=== PATIENT | male | born 1980 | race African-American/Black ===

== ENCOUNTER 2017-05-28 12:01 | Inpatient (IN) | payer BC ==
[~2017-05-28] VITALS: Ht 172.7 cm; Wt 79.9 kg
[~2017-05-28 12:01] MED LIST: IBUP-1542 PO; LEVE500T8 PO; PHEN100C PO
[2017-05-28] MEDS ORDERED: ONDANSETRON INJ 8 MG in DEXTROSE 5% 50 ML IV STA (12:30)
[2017-05-28] MEDS ORDERED: HYDROmorphONE 1 MG/ML SYG IV STA ×2 (12:30→13:38)
[2017-05-28] MEDS ORDERED: KETOROLAC 30 MG INJ IV STA (12:30)
[2017-05-28] MEDS ORDERED: SOD CHLORIDE 0.9% 1,000 ML IV STA (12:30)
[2017-05-28 12:51] LABS: ADD SCAN DIFF NO
[2017-05-28 12:52] LABS: BASOPHILS % 0.3 % (0.0-2.0); EOSINOPHILS # 0.3 10^3/ul (0.0-0.5); EOSINOPHILS % 4.4 % (0.0-7.0); HEMATOCRIT 33.3 % (42.0-52.0); HEMOGLOBIN 10.2 g/dl (14.0-18.0); LYMPHOCYTES # 1.3 10^3/ul (0.8-2.9); LYMPHOCYTES % 21.2 % (15.0-51.0); MEAN CORPUSCULAR HEMOGLOBIN 28.6 pg (29.0-33.0); MEAN CORPUSCULAR HGB CONC 30.6 g/dl (32.0-37.0); MEAN CORPUSCULAR VOLUME 93.3 fl (82.0-101.0); MEAN PLATELET VOLUME 9.6 fl (7.4-10.4); MONOCYTE # 1.1 10^3/ul (0.3-0.9); MONOCYTES % 17.9 % (0.0-11.0); NEUTROPHIL # 3.4 10^3/ul (1.6-7.5); PLATELET COUNT 421 10^3/UL (140-415); RED BLOOD COUNT 3.57 10^6/ul (4.70-6.10); RED CELL DISTRIBUTION WIDTH 15.1 % (11.5-14.5); WHITE BLOOD COUNT 6.1 10^3/ul (4.8-10.8)
[2017-05-28] MEDS ORDERED: ONDANSETRON 4 MG INJ IV STA (13:04)
[2017-05-28 13:17] LABS: ALBUMIN 3.4 g/dl (3.3-4.9); ALBUMIN/GLOBULIN RATIO 0.94; CALCIUM 8.6 mg/dl (8.4-10.2); CREATININE 6.98 mg/dl (0.61-1.24); POTASSIUM 4.7 mmol/L (3.5-5.1)
[2017-05-28 14:03] LABS: ADD UMIC NO; UR ASCORBIC ACID 20 mg/dL (NEGATIVE); UR BILIRUBIN (Dip) NEGATIVE (NEGATIVE); UR BLOOD (Dip) NEGATIVE (NEGATIVE); UR CLARITY CLEAR (CLEAR); UR COLOR STRAW (YELLOW); UR GLUCOSE (Dip) NEGATIVE (NEGATIVE); UR KETONES (Dip) NEGATIVE (NEGATIVE); UR LEUKOCYTE ESTERASE (Dip) NEGATIVE Leu/ul (NEGATIVE); UR NITRITE (Dip) NEGATIVE (NEGATIVE); UR SPECIFIC GRAVITY (Dip) 1.011 (1.003-1.030); UR TOTAL PROTEIN (Dip) NEGATIVE (NEGATIVE); UR UROBILINOGEN (Dip) NEGATIVE (NEGATIVE)
--- NOTE | 2017-05-28 16:14 | ERA ---
ER Documentation Chief Complaint Date/Time DATE: 05/28/17 TIME: 16:13 Chief Complaint LEFT FLANK AND ABD PAIN FOR THE PAST MONTH. PROGRESSIVE WORSENING HPI This is a 37-year-old male who presents to the emergency room for evaluation of left-sided flank pain. The patient states he has had pain for the past month and some progressively getting worse. He is also complaining of some pain in the right flank as well. He states that sometimes is difficult for him to urinate. He denies any medical problems. He denies any fevers or chills associated with this and came to the ER for evaluation ROS All systems reviewed and are negative except as per history of present illness. Medications Home Meds Active Scripts Phenytoin* Sodium Extended (Dilantin*) 100 Mg Capsule, 100 MG PO TID for 30 Days , CAP Prov:RENU LOPEZ MD 10/28/15 Reported Medications Ibuprofen* (Ibuprofen*) 600 Mg Tablet, 600 MG PO TID Y for PAIN 10/28/15 Levetiracetam* (Levetiracetam*) 500 Mg Tablet, 500 MG PO BID 10/28/15 Allergies Allergies: Coded Allergies: No Known Allergies (Verified Allergy, Mild, 07/27/10) PMhx/Soc History of Surgery: No Anesthesia Reaction: No Hx Neurological Disorder: No Hx Respiratory Disorders: No Hx Cardiac Disorders: No Hx Psychiatric Problems: No Hx Miscellaneous Medical Probl: No Hx Alcohol Use: No Hx Substance Use: No Hx Tobacco Use: No Smoking Status: Never smoker Physical Exam Vitals Vital Signs Date Time Temp Pulse Resp B/P Pulse Ox O2 Delivery O2 Flow Rate FiO2 05/28/17 12:04 98.6 82 16 165/90 98 Physical Exam INITIAL VITAL SIGNS: Reviewed by me GENERAL: The patient is well developed and appropriate for usual state of health in no apparent distress HEENT: Pupils equal, round, and reactive to light. EOMI. There is no scleral icterus. NECK: C-spine is soft and supple, there is no meningismus. There is no cervical lymphadenopathy. LUNGS: Clear to auscultation bilaterally. There are no rales, wheezes or rhonchi. HEART: Regular rate and rhythm, no murmurs, clicks, rubs or gallops. ABDOMEN: Bilateral CVAT, soft, non-tender, non-distended. There are bowel sounds in all four quadrants. No rebound or guarding. EXTREMITIES: There is no peripheral cyanosis or edema. No focal swelling or erythema. NEUROLOGICAL: The patient moves all four extremities with 5/5 strength. Cranial nerves II - XII are intact. Normal gait. Alert and oriented SKIN: There is no apparent rash or petechiae. HEME/LYMPHATIC: There is no evidence of excessive bruising or lymphedema. PSYCHIATRIC: The patient does not appear anxious or depressed. Result Diagram: 05/28/17 1248 05/28/17 1248 Results 24 hrs Laboratory Tests Test 05/28/17 12:48 05/28/17 13:44 White Blood Count 6.110^3/ul Red Blood Count 3.5710^6/ul Hemoglobin 10.2g/dl Hematocrit 33.3% Mean Corpuscular Volume 93.3fl Mean Corpuscular Hemoglobin 28.6pg Mean Corpuscular Hemoglobin Concent 30.6g/dl Red Cell Distribution Width 15.1% Platelet Count 71538^3/UL Mean Platelet Volume 9.6fl Neutrophils % 56.0% Lymphocytes % 21.2% Monocytes % 17.9% Eosinophils % 4.4% Basophils % 0.3% Nucleated Red Blood Cells % 0.0/100WBC Neutrophils # 3.410^3/ul Lymphocytes # 1.310^3/ul Monocytes # 1.110^3/ul Eosinophils # 0.310^3/ul Basophils # 0.010^3/ul Nucleated Red Blood Cells # 0.010^3/ul Sodium Level 141mmol/L Potassium Level 4.7mmol/L Chloride Level 108mmol/L Carbon Dioxide Level 18mmol/L Anion Gap 20 Blood Urea Nitrogen 41mg/dl Creatinine 6.98mg/dl Glucose Level 78mg/dl Calcium Level 8.6mg/dl Total Bilirubin 0.0mg/dl Direct Bilirubin 0.00mg/dl Indirect Bilirubin 0.0mg/dl Aspartate Amino Transf (AST/SGOT) 37IU/L Alanine Aminotransferase (ALT/SGPT) 50IU/L Alkaline Phosphatase 83IU/L Total Protein 7.0g/dl Albumin 3.4g/dl Globulin 3.60g/dl Albumin/Globulin Ratio 0.94 Lipase 81U/L Urine Color STRAW Urine Clarity CLEAR Urine pH 5.0 Urine Specific [place] 1.011 Urine Ketones NEGATIVEmg/dL Urine Nitrite NEGATIVEmg/dL Urine Bilirubin NEGATIVEmg/dL Urine Urobilinogen NEGATIVEmg/dL Urine Leukocyte Esterase NEGATIVELeu/ul Urine Hemoglobin NEGATIVEmg/dL Urine Glucose NEGATIVEmg/dL Urine Total Protein NEGATIVEmg/dl Current Medications Medications (Trade) Dose Ordered Sig/Suzanne Route PRN Reason Start Time Stop Time Status Last Admin Dose Admin Sodium Chloride (NS) 1,000 ml @ 1,000 mls/hr Q1H STAT IV 05/28/17 12:30 05/28/17 13:29 DC 05/28/17 12:47 Hydromorphone HCl 0.5 mg 0.5 mg ONCE STAT IV 05/28/17 12:30 05/28/17 12:32 DC 05/28/17 12:45 Ondansetron HCl/ Dextrose (Zofran Inj/D5W) 54 ml @ 200 mls/hr ONCE STAT IV 05/28/17 12:30 05/28/17 13:05 DC Ketorolac Tromethamine (Toradol) 30 mg ONCE STAT IV 05/28/17 12:30 05/28/17 12:33 DC 05/28/17 12:46 Ondansetron HCl (Zofran Inj) 8 mg ONCE STAT IV 05/28/17 13:04 05/28/17 13:06 DC 05/28/17 13:46 Hydromorphone HCl (Dilaudid) 0.5 mg ONCE STAT IV 05/28/17 13:38 05/28/17 13:40 DC 05/28/17 13:46 Procedures/MDM CT abdomen pelvis without: Gastric carcinoma and possible metastatic disease causing hydronephrosis CT report cannot be copy and pasted due to the fact that there is been room air in registering this patient since there has not been a crossover of information from PACS to our emergency room packs. I did review a copy of this patient's printed out CAT scan which does show hydronephrosis secondary to pelvic mass and possible gastric carcinoma. This patient will be placed in for admission at this time for new diagnosis of gastric carcinoma. Patient [facility] under the care of Dr. cosme Leon Diagnosis: Primary Impression: Acute renal failure Additional Impression: Gastric carcinoma Condition: NATALIE Heart DO May 28, 2017 16:14
[2017-05-28] MEDS ORDERED: ACETAMINOPHEN 325 MG TAB PO PRN ×2 (17:00→17:30)
[2017-05-28] MEDS ORDERED: SOD CHLORIDE 0.9% 1,000 ML IV SCH (17:00)
[2017-05-28] MEDS ORDERED: ONDANSETRON 4 MG INJ IV PRN ×2 (17:00→17:30)
--- NOTE | 2017-05-28 17:08 | HP ---
Date/Time of Note Date/Time of Note DATE: 05/28/17 TIME: 16:52 Assessment/Plan VTE Prophylaxis VTE Prophylaxis Intervention: SCD's Assessment/Plan Chief Complaint/Hosp Course 1. Abdominal pain secondary to likely metastatic gastric cancer with bilateral hydronephrosis and carcinomatosis GI and oncology consultation as well as urology consultation for bilateral hydronephrosis, patient will need a biopsy of the gastric mass CT brain and chest for staging Pain control 2. Acute kidney injury secondary to obstructive uropathy with bilateral hydronephrosis from retroperitoneal adenopathy and carcinomatosis Urology and nephrology consultations 3. History of seizures Patient was diagnosed with seizures 1-2 years ago, CT brain to rule out brain metastases Continue home Lamictal 4. Normocytic anemia likely secondary chronic disease Monitor Prophylaxis: SCDs Problems: HPI/ROS Admit Date/Time Admit Date/Time Hx of Present Illness Patient is a 37-year-old male with history of seizures diagnosed approximately 1 year ago presents with 1 month of worsening left flank pain and abdominal pain. Patient has been told recently at an urgent care that he has fluid in his belly and on his kidney and that he has acute renal failure, as he did have an ultrasound done at urgent care last week but had been unable to get a CT of his abdomen done secondary to insurance issues. Patient states that his pain today has been mostly on the right side, he denies any dysuria, urinary urgency or frequency. Patient does state that he recently had a fever but denies any nausea vomiting, new seizures or headaches. Patient denies any significant weight loss. In the ER CT abdomen showed a mass in the stomach suspicious for gastric cancer as well as moderate hydronephrosis of both kidneys as well as carcinomatosis and possible liver mass. ROS Gastrointestinal: pain PMH/Family/Social Past Medical History History of seizures diagnosed a year ago on Lamictal with no further seizures reported Past Surgical History Past Surgical Hx: no surgical history Family History Significant Family History: diabetes Social History Patient had been a daily drinker but stopped approximately a week ago Alcohol Use: other Smoking Status: Never smoker Drug Use: marijuana Exam/Review of Systems Vital Signs Vitals Vital Signs Date Time Temp Pulse Resp B/P Pulse Ox O2 Delivery O2 Flow Rate FiO2 05/28/17 12:04 98.6 82 16 165/90 98 Exam Constitutional: alert, oriented Head: normocephalic Respiratory: clear to auscultation Cardiovascular: regular rate and rhythm Gastrointestinal: firm, soft, tender, No distended Musculoskeletal: nl extremities to inspection Labs Result Diagram: 05/28/17 1248 05/28/17 1248 JESUS VALERIO May 28, 2017 17:06
[2017-05-28] MEDS ORDERED: DOCUSATE SODIUM 100 MG CAP PO PRN (17:30)
[2017-05-28] MEDS ORDERED: LORAZEPAM 2 MG INJ IV PRN (17:30)
[2017-05-28] MEDS ORDERED: HYDROCODONE/APAP (5/325) TAB PO PRN (17:30)
[2017-05-28] MEDS ORDERED: NACL 0.9% 3 ML SYG IV SCH (17:30)
[2017-05-28] MEDS ORDERED: ZOLPIDEM 5 MG TAB PO PRN (17:30)
[2017-05-28 17:57] VITALS: BP 178/108; RESP 18
[2017-05-28] MEDS ORDERED: hydrALAzine 20 MG INJ IV PRN (18:30)
--- NOTE | 2017-05-28 18:35 | RADRPT ---
PROCEDURE: CT scan of the abdomen and pelvis without IV contrast. CLINICAL INDICATION: 37-year-old male with abdominal pain and right lower pelvic pain. TECHNIQUE: Thin section axial, coronal and sagittal images were performed through the abdomen and pelvis without contrast. Radiation Dose: CTDI: 9.12 and DLP: 575 One or more of the following dose reduction techniques were used: - Automated exposure control. - Adjustment of the mA and/or kV according to patient size. Use of iterative reconstruction technique. COMPARISON: No. FINDINGS: Soft tissues: An umbilical hernia is identified. No inguinal hernia is identified. Lungs and pleural spaces: There is some pleural thickening and parenchymal scarring in the central d orsal aspect of the right lower lobe. There are peripheral ground-glass infiltrates and plate-like densities in the medial aspect of the right lower lobe consistent with atelectasis. Heart: Normal. A small pericardial effusion is noted. The liver, common bile duct and gallbladder: The liver is upper limits of normal for size measuring 15.46 cm AP. No intrahepatic biliary ductal dilatation is identified. A subcapsular hepatic mass is suspected near the ligament teres in the lateral segment of the left lobe of the liver. This shoul d be further evaluate with a ultrasound, triple phase CT scan with 15-minute delayed images through the bladder or MRI using a hemangioma protocol. There is a small amount of ascites noted adjacent t o the liver. The gallbladder and gallbladder wall are normal. A noncontrast CT is relatively insens itive in detecting solid hepatic nodules. Gastrointestinal: The stomach is distended with particulate matter fluid and air. There is a shelf- like area of gastric wall thickening in the antrum of the stomach which could be the result of a gas tric cancer. The periportal area is poorly defined making assessment for adenopathy in the area diff icult. Lack of oral contrast and IV contrast can to be used is. Fascial planes between the inferio r vena cava and abdominal aorta are poorly defined. There is stranding in the mesentery around the superior mesenteric vein and artery. Retroperitoneal and mesenteric spread of tumor is suspected. The small bowel loops have a normal caliber. There is fecal material in the ascending colon transve rse colon and splenic flexure.. There is fecal material in the transverse colon. There is a midlin e umbilical hernia measuring 1.9 cm transverse by 2.3 cm sagittal by 1.6 cm AP with a neck hernia me asuring 6 mm transverse. Pancreas: There is stranding adjacent to the body and tail as well as head of the pancreas. The ext rahepatic common bile duct is not well visualized. Kidneys, bladder and adrenal glands : There is moderate hydronephrosis of both kidneys. No obstruct ing ureterolith or nephrolith is identified. 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 The urinary bladder is incompletely distended without evidence of a bladder stone or bladd er wall thickening. Spleen: Normal. There is a small amount of ascitic fluid adjacent to the spleen. Lymph nodes: Enlarged mesenteric node measuring 2.3 cm sagittal x 1.5 x 0.9 cm in size is identifie d medial to the cecum. Enlarged retroperitoneal lymph nodes are suspected around the common iliac a rteries, mid and lower abdominal aorta. There are large lymph nodes suspected along the pelvic side sharma medial to the lower psoas and upper iliopsoas muscles. The fascial planes between the femoral vein and femoral artery is ill-defined on both sides. There is stranding of the mesentery. There a re small inguinal lymph nodes. Reproductive system and pelvis : The seminal vesicles and prostate gland are unremarkable. Bony elements: The innominate bone, femurs, SI joints and hip joints are normal. The lumbar vertebr a and visible thoracic vertebra are normal. No bone metastasis or acute bony fracture is identified . Vasculature: Normal. IMPRESSION: 1. There is a mass involving the fundus and antrum of the stomach suspicious for gastric cancer. 2. Moderate hydronephrosis of the right left kidneys with extensive retroperitoneal stranding and m esenteric stranding suspicious for retroperitoneal adenopathy and carcinomatosis with spread of tumo r. 3. A poorly visualized mass is identified in the subcapsular portion in the lateral segment of the left lobe of the liver near the ligamentum teres. Further imaging with a triple phase CT scan of th e abdomen pelvis with delayed images through the urinary bladder may be helpful in staging. A hepati c nodule from a metastasis, cirrhosis of the liver or hemangioma might present this fashion. A PET CT scan could be considered. 4. Some pleural and parenchymal scarring is suspected in the right lower lobe and lower right pleura l space. 5. Small pericardial effusion. 6. Constipation. 7. Midline umbilical hernia. 8. Ascites. RPTAT:AAJJ Arie Alan, Physician Date Time Electronically viewed and signed by Arie Alan Physician on 05/28/2017 14:13 DELMA/
--- NOTE | 2017-05-28 18:43 | QN ---
Documentation Comment Patient was briefly seen in the emergency room as he was being transferred, chart was reviewed Full consult to follow We will plan possible EGD tomorrow STACEY BARTH MD May 28, 2017 18:43
[2017-05-28] MEDS: DEXTROSE 5%-0.45% NACL 1,000 ML IV SCH (18:57)
--- NOTE | 2017-05-28 19:18 | CONS ---
Date/Time of Note Date/Time of Note DATE: 05/28/17 TIME: 18:59 Assessment/Plan Assessment/Plan Chief Complaint/Hosp Course Mass in the stomach and that is going to be worked up by the editor in chief Bilateral hydronephrosis most likely secondary to encasement of the ureters by a retroperitoneal adenopathy or fatty infiltration. Renal failure because of the hydronephrosis History of seizures Problems: Additional Assessment/Plan Patient will need to undergo a cystoscopy retrograde pyelograms and insertion of bilateral JJ stents. He is going to have upper endoscopy by the editor in chief most likely tomorrow therefore I would wait until that is done then I will schedule him for the cystoscopy. I spent over 45 minutes with the patient his explaining to them the findings and the hydronephrosis the causes for that the differential diagnosis and the treatment. I informed them that if we have to put the JJ stents these need to be changed every 3 months. He asked whether he will have them for how long I told him if he was to undergo chemotherapy for his cancer after that is being confirmed and the kidneys are no longer obstructed then we could take the stents out. I also discussed with them in case we cannot put the JJ stents doing bilateral nephrostomy tube insertion he understood that. For now I would wait for the GI procedures to be done first and also for the nephrology see if they need to do any dialysis on him first. Consultation Date/Type/Reason Admit Date/Time May 28, 2017 Date of Consultation: May 28, 2017 Type of Consultation: Urology Reason for Consultation Bilateral hydronephrosis Referring Provider: JESUS VALERIO of Present Illness 37-year-old -[place] male has been having low back pain for about a month. He went to an urgent care in April and had abdominal ultrasound. That showed ascites and hydronephrosis. He was recommended to have a CT scan and when he called to make the appointment for the CT scan he was told they do not have an opening until sometime in June. On May 12 his insurance changed from a PPO HM0. He continues to have back pain therefore he came into the emergency room at [facility]. He underwent a CT scan of the abdomen and pelvis and the impression was: 1. There is a mass involving the fundus and antrum of the stomach suspicious for gastric cancer. 2. Moderate hydronephrosis of the right left kidneys with extensive retroperitoneal stranding and mesenteric stranding suspicious for retroperitoneal adenopathy and carcinomatosis with spread of tumor. 3. A poorly visualized mass is identified in the subcapsular portion in the lateral segment of the left lobe of the liver near the ligamentum teres. Further imaging with a triple phase CT scan of the abdomen pelvis with delayed images through the urinary bladder may be helpful in staging. A hepatic nodule from a metastasis, cirrhosis of the liver or hemangioma might present this fashion. A PET CT scan could be considered. 4. Some pleural and parenchymal scarring is suspected in the right lower lobe and lower right pleural space. 5. Small pericardial effusion. 6. Constipation. 7. Midline umbilical hernia. 8. Ascites. RPTAT:AAJJ Physician Bill Date Time Electronically viewed and signed by Arie Alan Physician on 05/28/2017 14:13 JM/ Therefore the patient was admitted to the hospital GI consult was requested as well as nephrology consultation because of renal failure and a urological consult Constitutional: no complaints Eyes: no complaints ENT: no complaints Respiratory: no complaints Cardiovascular: no complaints Gastrointestinal: pain (Pain and abdominal distention in the epigastric area and mid abdomen) Genitourinary: other (Low back pain), No dysuria, No hematuria Musculoskeletal: no complaints Skin: no complaints Neurologic: other (He was diagnosed with seizures about an year and was worked up for that and put on medications there was no diagnosis of any brain tumor according to him and his ), seizure Endocrine: no complaints Lymphatic: no complaints Psychological: no complaints Immunologic: no complaints Past Medical History Medical History: other (History of seizure) Past Surgical History Past Surgical Hx: no surgical history Family History Significant Family History: no pertinent family hx Social History Alcohol Use: other Smoking Status: Never smoker Drug Use: marijuana Other Social History Has 2 children and his is now Exam/Review of Systems Vital Signs Vitals Vital Signs Date Time Temp Pulse Resp B/P Pulse Ox O2 Delivery O2 Flow Rate FiO2 05/28/17 17:57 98.4 85 18 178/108 97 7/17/17 16:58 Room Air Exam Constitutional: alert, oriented Psych: no complaints Head: normocephalic Eyes: nl conjunctiva ENMT: nl external ears & nose Neck: supple Respiratory: normal air movement Cardiovascular: nl pulses Gastrointestinal: other (The abdomen is a little distended and he feels fullness in the mid abdomen) Genitourinary - Male: other (His genitals have some edema and puffiness) Musculoskeletal: nl extremities to inspection Extremities: edema (Mild edema in both thighs) Skin: nl turgor Results Result Diagram: 05/28/17 1248 05/28/17 1248 Results 24 hrs Laboratory Tests Test 05/28/17 12:48 05/28/17 13:44 White Blood Count 6.1 Red Blood Count 3.57 L Hemoglobin 10.2 L Hematocrit 33.3 L Mean Corpuscular Volume 93.3 Mean Corpuscular Hemoglobin 28.6 L Mean Corpuscular Hemoglobin Concent 30.6 L Red Cell Distribution Width 15.1 H Platelet Count 421 H Mean Platelet Volume 9.6 Neutrophils % 56.0 Lymphocytes % 21.2 Monocytes % 17.9 H Eosinophils % 4.4 Basophils % 0.3 Nucleated Red Blood Cells % 0.0 Neutrophils # 3.4 Lymphocytes # 1.3 Monocytes # 1.1 H Eosinophils # 0.3 Basophils # 0.0 Nucleated Red Blood Cells # 0.0 Sodium Level 141 Potassium Level 4.7 Chloride Level 108 Carbon Dioxide Level 18 L Anion Gap 20 H Blood Urea Nitrogen 41 H Creatinine 6.98 H Glucose Level 78 Calcium Level 8.6 Total Bilirubin 0.0 L Direct Bilirubin 0.00 Indirect Bilirubin 0.0 Aspartate Amino Transf (AST/SGOT) 37 Alanine Aminotransferase (ALT/SGPT) 50 Alkaline Phosphatase 83 Total Protein 7.0 Albumin 3.4 Globulin 3.60 H Albumin/Globulin Ratio 0.94 Lipase 81 Urine Color STRAW Urine Clarity CLEAR Urine pH 5.0 Urine Specific [place] 1.011 Urine Ketones NEGATIVE Urine Nitrite NEGATIVE Urine Bilirubin NEGATIVE Urine Urobilinogen NEGATIVE Urine Leukocyte Esterase NEGATIVE Urine Hemoglobin NEGATIVE Urine Glucose NEGATIVE Urine Total Protein NEGATIVE Medications Medications Current Medications Dextrose/Sodium Chloride (D5-1/2ns) 1,000 ml @ 50 mls/hr Q20H IV ; Start at 17:08 Ondansetron HCl (Zofran Inj) 4 mg Q6H PRN IV NAUSEA AND/OR VOMITING; Start at 17:30 Acetaminophen (Tylenol Tab) 650 mg Q6H PRN PO PAIN LEVEL 1-3 OR FEVER; Start at 17:30 Acetaminophen/ Hydrocodone Bitart ([place] (5/325)) 1 tab Q6H PRN PO MODERATE PAIN LEVEL 4-6; Start 05/28/17 at 17:30 Hydromorphone HCl (Dilaudid) 0.5 mg Q3 PRN IV SEVERE PAIN LEVEL 7-10; Start at 17:30 Docusate Sodium (Colace) 100 mg Q12H PRN PO CONSTIPATION; Start 05/28/17 at 17: 30 Zolpidem Tartrate (Ambien) 5 mg QHS PRN PO SLEEP; Start 05/28/17 at 17:30 Levetiracetam (Keppra) 500 mg BID PO ; Start 05/28/17 at 21:00 Lorazepam (Ativan) 1 mg Q10MIN PRN IV SEIZURES; Start 05/28/17 at 17:30 Hydralazine HCl (Apresoline) 10 mg Q6 PRN IV SBP>170; Start 05/28/17 at 18:30 ANDREW DUDLEY MD May 28, 2017 19:09
[2017-05-28 19:33] VITALS: BP 167/100; RESP 20
[2017-05-28] MEDS: HYDROmorphONE 1 MG/ML SYG IV PRN (20:48)
[2017-05-28] MEDS ORDERED: LEVETIRACETAM 500 MG TAB PO SCH (21:00)
[2017-05-28 21:23] VITALS: BP 165/97; RESP 20
[2017-05-28] MEDS ORDERED: METOPROLOL 25 MG TAB PO ONE (21:30)
[2017-05-28] MEDS: LAMOTRIGINE 100 MG TAB PO SCH (21:37)
[2017-05-28 22:30] VITALS: BP 160/90; PULSE 90
--- NOTE | 2017-05-28 23:10 | CONS ---
Date/Time of Note Date/Time of Note DATE: 05/28/17 TIME: 22:37 Assessment/Plan Assessment/Plan Chief Complaint/Hosp Course Back pain. Problems: (1) Gastric mass (2) Lymphadenopathy, abdominal (3) Hydronephrosis determined by ultrasound (4) Renal failure (5) Seizure disorder Status: Acute Additional Assessment/Plan Pt is 37 y/o male with 2 year hx of seizure disorder. Now admitted with 1 month hx of back pain. Was found to have retroperitoneal adenopathy with bilateral hydronephrosis causing renal failure. This was documented on CT done in ER but was also noted when pt had an ultrasound 1 month ago and an Urgent Care center. This is when back pain initially started. Pt has a malignancy. I feel that the most likely malignant process in a 37 y/o without GI symptoms in spite of gastric masses is a lymphoproliferative disorder. The most likely would be a NonHodgkin's lymphoma. Cannot exclude Hodgkin's Lymphoma. Other possible processes include a Gastrointestinal Stromal Tumor (GIST). Less likely would be an upper GI primary. Will request an LDH, uric acid, SPEP, IEP, QIG's, CEA and CA 19.9. Pt is to have an EGD 05/29. Hopefully a tissue sample will be obtainable. Pt will also require bilateral ureteral stent placement. If kidney cannot be decompressed cystoscopically it may be necessary to perform percutaneous nephrostomies. Will start pt on allopurinol in anticipation of hyperuricemia which will develop with treatment. Consultation Date/Type/Reason Admit Date/Time May 28, 2017 Date of Consultation: May 28, 2017 Type of Consultation: hematology/oncology Reason for Consultation gastric mass and retroperitoneal adenopathy Referring Provider: JESUS VALERIO Hx of Present Illness 37 y/o with 1 month hx of back pain which is now radiating to inguinal areas. Pt was seen in an urgent care center and an ultrasound detected gastric mass, retroperitoneal adenopathy and bilateral hydronephrosis. Pt did not have further w/u because of insurance issues. Came to ER today with worsening of symptoms. Has had recent night sweats and also noted penile edema today. Pt has had no urinary symptoms, no change in bowel habits, no anorexia or nausea/vomiting. Has lost only 4-5 lbs in past month. Pt has had no chest pain, cough or SOB. CT scan done in ER does demonstrate gastric masses, retroperitoneal adenopathy and bilateral hydronephrosis. Creat ~ 6.0. 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 Has had some pain relief with hydrocodone/APAP. Pt complaints are as above. Mostly c/o back pain with radiation to inguinal areas. Recent onset of night sweats. Constitutional: no complaints Eyes: no complaints ENT: no complaints Respiratory: no complaints Cardiovascular: no complaints Gastrointestinal: pain (Pain and abdominal distention in the epigastric area and mid abdomen) Genitourinary: other (Low back pain), No dysuria, No hematuria Musculoskeletal: no complaints Skin: no complaints Neurologic: other (He was diagnosed with seizures about an year and was worked up for that and put on medications there was no diagnosis of any brain tumor according to him and his ), seizure Endocrine: no complaints Lymphatic: no complaints Psychological: no complaints Immunologic: no complaints Past Medical History Pt only prior medical problems include a seizure disorder which started in 2014. No etiology ever found. Now on Lamictal and has had no seizures in > 1 year. Previously has GM and PM seizures. No other medical problems. No surgeries. Medical History: other (History of seizure) Past Surgical History Past Surgical Hx: no surgical history Family History Significant Family History: diabetes, other (Mother of Hepatitis C (IV drug use) Father with HIV and possible OD) Social History . 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 Did spend 8 years in assisted. Previous marijuana use but none for 2 years. Does drink 24 oz of beer daily. Does not smoke cigarettes or use other tobacco products. No known exposures to industrial toxins or ionizing radiation. Has 2 children. Alcohol Use: other Smoking Status: Never smoker Drug Use: marijuana Exam/Review of Systems Vital Signs Vitals Vital Signs Date Time Temp Pulse Resp B/P Pulse Ox O2 Delivery O2 Flow Rate FiO2 05/28/17 21:23 98.6 88 20 165/97 99 05/28/17 16:58 Room Air Exam Constitutional: alert, oriented, well developed Psych: nl mood/affect, no complaints Head: atraumatic, normocephalic Eyes: EOMI, nl conjunctiva, nl sclera ENMT: mucosa pink and moist, nl lips & teeth Neck: non-tender, supple Respiratory: clear to auscultation, normal air movement Cardiovascular: regular rate and rhythm Gastrointestinal: distended (mildy, No distinct masses or asites. 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, nl mental status, nl speech, nl strength Skin: nl turgor, other (tattoos), rash or lesions Results Result Diagram: 05/28/17 1248 05/28/17 1248 Results 24 hrs Laboratory Tests Test 05/28/17 12:48 05/28/17 13:44 White Blood Count 6.1 Red Blood Count 3.57 L Hemoglobin 10.2 L Hematocrit 33.3 L Mean Corpuscular Volume 93.3 Mean Corpuscular Hemoglobin 28.6 L Mean Corpuscular Hemoglobin Concent 30.6 L Red Cell Distribution Width 15.1 H Platelet Count 421 H Mean Platelet Volume 9.6 Neutrophils % 56.0 Lymphocytes % 21.2 Monocytes % 17.9 H Eosinophils % 4.4 Basophils % 0.3 Nucleated Red Blood Cells % 0.0 Neutrophils # 3.4 Lymphocytes # 1.3 Monocytes # 1.1 H Eosinophils # 0.3 Basophils # 0.0 Nucleated Red Blood Cells # 0.0 Sodium Level 141 Potassium Level 4.7 Chloride Level 108 Carbon Dioxide Level 18 L Anion Gap 20 H Blood Urea Nitrogen 41 H Creatinine 6.98 H Glucose Level 78 Calcium Level 8.6 Total Bilirubin 0.0 L Direct Bilirubin 0.00 Indirect Bilirubin 0.0 Aspartate Amino Transf (AST/SGOT) 37 Alanine Aminotransferase (ALT/SGPT) 50 Alkaline Phosphatase 83 Total Protein 7.0 Albumin 3.4 Globulin 3.60 H Albumin/Globulin Ratio 0.94 Lipase 81 Urine Color STRAW Urine Clarity CLEAR Urine pH 5.0 Urine Specific [place] 1.011 Urine Ketones NEGATIVE Urine Nitrite NEGATIVE Urine Bilirubin NEGATIVE Urine Urobilinogen NEGATIVE Urine Leukocyte Esterase NEGATIVE Urine Hemoglobin NEGATIVE Urine Glucose NEGATIVE Urine Total Protein NEGATIVE Medications Medications Current Medications Dextrose/Sodium Chloride (D5-1/2ns) 1,000 ml @ 50 mls/hr Q20H IV Last administered on 05/28/17t 18:57; Admin Dose 50 MLS/HR; Start 05/28/17 at 17:08 Ondansetron HCl (Zofran Inj) 4 mg Q6H PRN IV NAUSEA AND/OR VOMITING; Start at 17:30 Acetaminophen (Tylenol Tab) 650 mg Q6H PRN PO PAIN LEVEL 1-3 OR FEVER; Start at 17:30 Acetaminophen/ Hydrocodone Bitart ([place] (5/325)) 1 tab Q6H PRN PO MODERATE PAIN LEVEL 4-6; Start 05/28/17 at 17:30 Hydromorphone HCl (Dilaudid) 0.5 mg Q3 PRN IV SEVERE PAIN LEVEL 7-10 Last administered on 05/28/17t 20:48; Admin Dose 0.5 MG; Start 05/28/17 at 17:30 Docusate Sodium (Colace) 100 mg Q12H PRN PO CONSTIPATION; Start 05/28/17 at 17: 30 Zolpidem Tartrate (Ambien) 5 mg QHS PRN PO SLEEP; Start 05/28/17 at 17:30 Lorazepam (Ativan) 1 mg Q10MIN PRN IV SEIZURES; Start 05/28/17 at 17:30 Lamotrigine (Lamictal) 150 mg BID PO Last administered on 05/28/17 21:37; Admin Dose 150 MG; Start 05/28/17 at 21:00 Hydralazine HCl (Apresoline) 10 mg Q4 PRN IV SBP>160; Start 05/29/17 at 01:00 Amlodipine Besylate (Norvasc) 10 mg DAILY PO ; Start 05/29/17 at 09:00 LESTER DUTTA MD May 28, 2017 22:49
[2017-05-29] VITALS (21 sets, daily range): BP systolic 124–162; BP diastolic 73–108; PULSE 80–96; RESP 10–20; Ht 172.7 cm; Wt 79.9 kg
[2017-05-29] MEDS ORDERED: hydrALAzine 20 MG INJ IV PRN (01:00)
[2017-05-29 05:36] LABS: ADD SCAN DIFF NO
[2017-05-29 05:40] LABS: BASOPHILS % 0.4 % (0.0-2.0); EOSINOPHILS # 0.2 10^3/ul (0.0-0.5); EOSINOPHILS % 3.8 % (0.0-7.0); HEMATOCRIT 31.8 % (42.0-52.0); HEMOGLOBIN 9.6 g/dl (14.0-18.0); LYMPHOCYTES # 0.9 10^3/ul (0.8-2.9); LYMPHOCYTES % 19.6 % (15.0-51.0); MEAN CORPUSCULAR HEMOGLOBIN 28.3 pg (29.0-33.0); MEAN CORPUSCULAR HGB CONC 30.2 g/dl (32.0-37.0); MEAN CORPUSCULAR VOLUME 93.8 fl (82.0-101.0); MEAN PLATELET VOLUME 9.2 fl (7.4-10.4); MONOCYTE # 0.7 10^3/ul (0.3-0.9); MONOCYTES % 15.6 % (0.0-11.0); NEUTROPHIL # 2.9 10^3/ul (1.6-7.5); NEUTROPHILS % 60.4 % (39.0-77.0); PLATELET COUNT 440 10^3/UL (140-415); RED BLOOD COUNT 3.39 10^6/ul (4.70-6.10); RED CELL DISTRIBUTION WIDTH 15.5 % (11.5-14.5); WHITE BLOOD COUNT 4.7 10^3/ul (4.8-10.8)
[2017-05-29 06:03] LABS: PROTIME 13.2 Sec (12.2-14.2)
[2017-05-29 06:04] LABS: PARTIAL THROMBOPLASTIN TIME 35.4 Sec (25.0-35.0)
[2017-05-29 06:11] LABS: URIC ACID 6.2 mg/dl (3.1-7.9)
[2017-05-29 06:16] LABS: CALCIUM 8.7 mg/dl (8.4-10.2); CHOL/HDL RATIO 4.4 RATIO; CREATININE 7.56 mg/dl (0.61-1.24); MAGNESIUM 2.3 mg/dl (1.7-2.5); PHOSPHORUS 6.1 mg/dl (2.5-4.9); POTASSIUM 5.7 mmol/L (3.5-5.1)
[2017-05-29 06:44] LABS: CANCER ANTIGEN 19-9 16.7 U/ml (0.0-37.0)
--- NOTE | 2017-05-29 08:48 | RADRPT ---
PROCEDURE: CT brain without contrast CLINICAL INDICATION: Abdominal mass TECHNIQUE: CT of the brain without contrast was performed on a multidetector CT scanner, with multi planar reformats. One or more of the following dose reduction techniques were used: Automated expos ure control, adjustment in mA and / or kV according to patient size, use of iterative reconstructive technique. CTDIvol = 44 mGy; DLP = 720 mGy-cm. COMPARISON: None available FINDINGS: No acute intracranial hemorrhage is identified. No extra-axial fluid collection is seen. There is no mass effect. No midline shift is identified. Ventricles and sulci are within normal limits for size and configuration. Incidentally noted is a c avum veli interpositi. The density of the brain is unremarkable. Montalvo-white differentiation is preserved. Osseous structures are unremarkable. Mastoid air cells and imaged paranasal sinuses grossly clear. IMPRESSION: No evidence of acute intracranial pathology. RPTAT: VV .Jaime Becker MD, MD Date Time Electronically viewed and signed by .Jaime Becker MD, on 05/29/2017 08:48 .O/
[2017-05-29] MEDS: ALLOPURINOL 100 MG TAB PO SCH (08:52)
[2017-05-29] MEDS: AMLODIPINE 10 MG TAB PO SCH (08:54)
[2017-05-29] MEDS: LAMOTRIGINE 100 MG TAB PO SCH ×2 (08:55→23:38)
[2017-05-29] MEDS: DEXTROSE 5%-0.45% NACL 1,000 ML IV SCH (12:22)
--- NOTE | 2017-05-29 12:23 | RADRPT ---
PROCEDURE: CT Chest without contrast. CLINICAL INDICATION: Chest pain. TECHNIQUE: Helical axial sections were obtained through the chest without intravenous contrast enh ancement. Coronal and sagittal reformatted images were obtained from the axial source images. Total exam DLP is 335.43 mGy-cm. CTDIvol is 7.97 mGy. One or more of the following dose reduction tech niques were used: Automated exposure control, adjustment of the mA and/or kV according to patient si ze, use of iterative reconstruction technique. COMPARISON: None FINDINGS: There is mild atelectasis at both lung bases posteriorly. The lungs are otherwise clear with no othe r airspace or interstitial disease. There is no pulmonary nodule or mass lesion. There is no mediastinal or hilar lymphadenopathy or mass. There is no axillary, supraclavicular, or internal mammary lymphadenopathy. The thoracic aorta is not dilated. The heart size is normal. There is no pleural effusion or pericardial effusion. Images through the abdomen and pelvis are reported separately. The osseous structures are grossly normal. IMPRESSION: 1. Mild atelectasis at both lung bases posteriorly. 2. Abnormalities in the abdomen are reported separately. 3. Otherwise unremarkable study. RPTAT: QQ .William Ozuna MD, MD Date Time Electronically viewed and signed by .William Ozuna MD, on 05/29/2017 12:22 .R/
--- NOTE | 2017-05-29 12:46 | CONS ---
Date/Time of Note Date/Time of Note DATE: 05/29/17 TIME: 12:44 Assessment/Plan Assessment/Plan Additional Assessment/Plan 37 yo Male with 1) EDWIN 2) Hydronephrosis 3) Hyperkalemia- Resolved 4) Gastritis 5) Lymphadenopathy Planned for EGD later today and Ureteral stent placement likely tomorrow Good UO, Non oliguric Cr has improved slightly No acute indication for HD at this time Will cont to monitor UO, Electrolytes, Renal function closely. Consultation Date/Type/Reason Admit Date/Time May 28, 2017 at 17:01 Initial Consult Date 05/28/17 Type of Consultation: Renal Referring Provider: JESUS VALERIO 24 HR Interval Summary Free Text/Dictation Good UO Constitutional: No requiring O2 Exam/Review of Systems Vital Signs Vitals Vital Signs Date Time Temp Pulse Resp B/P Pulse Ox O2 Delivery O2 Flow Rate FiO2 05/29/17 07:38 99.2 84 18 128/80 98 05/29/17 03:00 Room Air Intake and Output 05/28/17 05/28/17 05/29/17 15:00 23:00 07:00 Intake Total 500 ml Balance 500 ml Exam Constitutional: alert, oriented, No distress ENMT: mucosa pink and moist Neck: No jvd Respiratory: clear to auscultation Cardiovascular: regular rate and rhythm, No edema Gastrointestinal: distended, tender Extremities: No edema 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, nl mental status, No lethargic Skin: No diaphoresis Results Result Diagram: 05/29/17 0504 05/29/17 0504 Results 24 hrs Laboratory Tests Test 05/28/17 12:48 05/28/17 12:50 05/28/17 13:44 05/29/17 05:04 White Blood Count 6.1 4.7 #L Red Blood Count 3.57 L 3.39 L Hemoglobin 10.2 L 9.6 L Hematocrit 33.3 L 31.8 L Mean Corpuscular Volume 93.3 93.8 Mean Corpuscular Hemoglobin 28.6 L 28.3 L Mean Corpuscular Hemoglobin Concent 30.6 L 30.2 L Red Cell Distribution Width 15.1 H 15.5 H Platelet Count 421 H 440 H Mean Platelet Volume 9.6 9.2 Neutrophils % 56.0 60.4 Lymphocytes % 21.2 19.6 Monocytes % 17.9 H 15.6 H Eosinophils % 4.4 3.8 Basophils % 0.3 0.4 Nucleated Red Blood Cells % 0.0 0.0 Neutrophils # 3.4 2.9 Lymphocytes # 1.3 0.9 Monocytes # 1.1 H 0.7 Eosinophils # 0.3 0.2 Basophils # 0.0 0.0 Nucleated Red Blood Cells # 0.0 0.0 Sodium Level 141 143 Potassium Level 4.7 5.7 H Chloride Level 108 107 Carbon Dioxide Level 18 L 23 Anion Gap 20 H 19 H Blood Urea Nitrogen 41 H 43 H Creatinine 6.98 H 7.56 H Glucose Level 78 87 Calcium Level 8.6 8.7 Total Bilirubin 0.0 L Direct Bilirubin 0.00 Indirect Bilirubin 0.0 Aspartate Amino Transf (AST/SGOT) 37 Alanine Aminotransferase (ALT/SGPT) 50 Alkaline Phosphatase 83 Total Protein 7.0 Albumin 3.4 Globulin 3.60 H Albumin/Globulin Ratio 0.94 Lipase 81 Carcinoembryonic Antigen 1.2 1.0 Urine Color STRAW Urine Clarity CLEAR Urine pH 5.0 Urine Specific [place] 1.011 Urine Ketones NEGATIVE Urine Nitrite NEGATIVE Urine Bilirubin NEGATIVE Urine Urobilinogen NEGATIVE Urine Leukocyte Esterase NEGATIVE Urine Hemoglobin NEGATIVE Urine Glucose NEGATIVE Urine Total Protein NEGATIVE Prothrombin Time 13.2 Prothrombin Time Ratio 1.0 INR International Normalized Ratio 1.00 Activated Partial Thromboplast Time 35.4 H Hemoglobin A1c 5.3 Uric Acid 6.2 Phosphorus Level 6.1 H Magnesium Level 2.3 Lactate Dehydrogenase 397 Triglycerides Level 101 Cholesterol Level 110 LDL Cholesterol, Calculated 65 HDL Cholesterol 25 L Cholesterol/HDL Ratio 4.4 CA 19-9 Antigen 16.7 Immunoglobulin A 354 Immunoglobulin G 961 Immunoglobulin M 66 Medications Medications Current Medications Dextrose/Sodium Chloride (D5-1/2ns) 1,000 ml @ 50 mls/hr Q20H IV Last administered on 05/28/17t 18:57; Admin Dose 50 MLS/HR; Start 05/28/17 at 17:08 Ondansetron HCl (Zofran Inj) 4 mg Q6H PRN IV NAUSEA AND/OR VOMITING; Start at 17:30 Acetaminophen (Tylenol Tab) 650 mg Q6H PRN PO PAIN LEVEL 1-3 OR FEVER; Start at 17:30 Acetaminophen/ Hydrocodone Bitart ([place] (5/325)) 1 tab Q6H PRN PO MODERATE PAIN LEVEL 4-6 Last administered on 05/29/17 00:00; Admin Dose 1 TAB; Start at 17:30 Hydromorphone HCl (Dilaudid) 0.5 mg Q3 PRN IV SEVERE PAIN LEVEL 7-10 Last administered on 05/28/17 20:48; Admin Dose 0.5 MG; Start 05/28/17 at 17:30 Docusate Sodium (Colace) 100 mg Q12H PRN PO CONSTIPATION; Start 05/28/17 at 17: 30 Zolpidem Tartrate (Ambien) 5 mg QHS PRN PO SLEEP; Start 05/28/17 at 17:30 Lorazepam (Ativan) 1 mg Q10MIN PRN IV SEIZURES; Start 05/28/17 at 17:30 Lamotrigine (Lamictal) 150 mg BID PO Last administered on 05/29/17 08:55; Admin Dose 150 MG; Start 05/28/17 at 21:00 Hydralazine HCl (Apresoline) 10 mg Q4 PRN IV SBP>160 Last administered on 00:07; Admin Dose 10 MG; Start 05/29/17 at 01:00 Amlodipine Besylate (Norvasc) 10 mg DAILY PO Last administered on 05/29/17 08: 54; Admin Dose 10 MG; Start 05/29/17 at 09:00 Allopurinol (Zyloprim) 100 mg DAILY PO Last administered on 05/29/17 08:52; Admin Dose 100 MG; Start 05/29/17 at 09:[address] Abdomen Kidneys, bladder and adrenal glands : There is moderate hydronephrosis of both kidneys. No obstructing ureterolith or nephrolith is identified. 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 The urinary bladder is incompletely distended without evidence of a bladder stone or bladder wall thickening. TEE KEN MD May 29, 2017 12:46
--- NOTE | 2017-05-29 13:50 | CONS ---
Date/Time of Note Date/Time of Note DATE: 05/29/17 TIME: 13:34 Assessment/Plan Assessment/Plan Additional Assessment/Plan Assessment * Abdominal pain CT scan . There is a mass involving the fundus and antrum of the stomach suspicious for gastric cancer. Moderate hydronephrosis of the right left kidneys with extensive retroperitoneal stranding and mesenteric stranding suspicious for retroperitoneal adenopathy and carcinomatosis with spread of tumor. . A poorly visualized mass is identified in the subcapsular portion in the lateral segment of the left lobe of the liver near the ligamentum teres. Some pleural and parenchymal scarring is suspected in the right lower lobe and lower right pleural space. Small pericardial effusion. . Constipation. . Midline umbilical hernia. . Ascites. Plan * EGD today risks and benefits explained to patient agreed with the plan procedure * continue present management Consultation Date/Type/Reason Admit Date/Time May 28, 2017 at 17:01 Date of Consultation: May 29, 2017 Type of Consultation: Gastroenterology Reason for Consultation gastric mass by CT scan Referring Provider: JESUS VALERIO Hx of Present Illness 37 year old male with past medical history of seizures presented in the emergency room because of flank pain and abdominal pain.Present condition apparently started 1 month prior to admission as flank pain which radiates to the abdomen,denies any nausea,vomiting ,weight loss,hematemesis nor hematochezia.Prompted to consult urgent care where an ultrasound revealed hydronephroses.A CT scan was requested but do to insurance issues patient was unable to do it.Pain becoming worse with associated early satiety prompted consult at emergency room. CT scan revealed 1. There is a mass involving the fundus and antrum of the stomach suspicious for gastric cancer. 2. Moderate hydronephrosis of the right left kidneys with extensive retroperitoneal stranding and mesenteric stranding suspicious for retroperitoneal adenopathy and carcinomatosis with spread of tumor. 3. A poorly visualized mass is identified in the subcapsular portion in the lateral segment of the left lobe of the liver near the ligamentum teres. Further imaging with a triple phase CT scan of the abdomen pelvis with delayed images through the urinary bladder may be helpful in staging. A hepatic nodule from a metastasis, cirrhosis of the liver or hemangioma might present this fashion. A PET CT scan could be considered. 4. Some pleural and parenchymal scarring is suspected in the right lower lobe and lower right pleural space. 5. Small pericardial effusion. 6. Constipation. 7. Midline umbilical hernia. 8. Ascites. CBC showed wbc 6.1 ,hemoglobin 10.4.Presently patient still complains of on and off abdominal pain.Urology was consulted for hydronephrosis,we will schdule patient for EGD today ,risks and benefit explained to patient Constitutional: No requiring O2 Eyes: no complaints ENT: no complaints Respiratory: no complaints Cardiovascular: no complaints Gastrointestinal: pain (Pain and abdominal distention in the epigastric area and mid abdomen) Genitourinary: other (Low back pain), No dysuria, No hematuria Musculoskeletal: no complaints Skin: no complaints Neurologic: other (He was diagnosed with seizures about an year and was worked up for that and put on medications there was no diagnosis of any brain tumor according to him and his ), seizure Endocrine: no complaints Lymphatic: no complaints Psychological: nl mood/affect, no complaints Immunologic: no complaints Past Medical History Medical History: other (History of seizure) Past Surgical History Past Surgical Hx: no surgical history Social History Alcohol Use: other Smoking Status: Never smoker Drug Use: marijuana Exam/Review of Systems Vital Signs Vitals Vital Signs Date Time Temp Pulse Resp B/P Pulse Ox O2 Delivery O2 Flow Rate FiO2 05/29/17 07:38 99.2 84 18 128/80 98 05/29/17 03:00 Room Air Intake and Output 05/28/17 05/28/17 05/29/17 15:00 23:00 07:00 Intake Total 500 ml Balance 500 ml Exam Constitutional: alert, oriented, well developed Psych: nl mood/affect, no complaints Head: atraumatic, normocephalic Eyes: PERRL, nl conjunctiva, nl sclera ENMT: nl external ears & nose Neck: non-tender, supple Respiratory: clear to auscultation, normal air movement Cardiovascular: nl pulses, regular rate and rhythm Gastrointestinal: bowel sounds, nl liver, spleen, non-tender, soft, No rebound or guarding Musculoskeletal: nl extremities to inspection, nl gait and stance Extremities: normal pulses Neurological: nl mental status, nl speech, nl strength Skin: nl turgor, No rash or lesions Lymph: nl lymph nodes Results Result Diagram: 05/29/17 0504 05/29/17 0504 Results 24 hrs Laboratory Tests Test 05/28/17 13:44 05/29/17 05:04 Urine Color STRAW Urine Clarity CLEAR Urine pH 5.0 Urine Specific [place] 1.011 Urine Ketones NEGATIVE Urine Nitrite NEGATIVE Urine Bilirubin NEGATIVE Urine Urobilinogen NEGATIVE Urine Leukocyte Esterase NEGATIVE Urine Hemoglobin NEGATIVE Urine Glucose NEGATIVE Urine Total Protein NEGATIVE White Blood Count 4.7 #L Red Blood Count 3.39 L Hemoglobin 9.6 L Hematocrit 31.8 L Mean Corpuscular Volume 93.8 Mean Corpuscular Hemoglobin 28.3 L Mean Corpuscular Hemoglobin Concent 30.2 L Red Cell Distribution Width 15.5 H Platelet Count 440 H Mean Platelet Volume 9.2 Neutrophils % 60.4 Lymphocytes % 19.6 Monocytes % 15.6 H Eosinophils % 3.8 Basophils % 0.4 Nucleated Red Blood Cells % 0.0 Neutrophils # 2.9 Lymphocytes # 0.9 Monocytes # 0.7 Eosinophils # 0.2 Basophils # 0.0 Nucleated Red Blood Cells # 0.0 Prothrombin Time 13.2 Prothrombin Time Ratio 1.0 INR International Normalized Ratio 1.00 Activated Partial Thromboplast Time 35.4 H Sodium Level 143 Potassium Level 5.7 H Chloride Level 107 Carbon Dioxide Level 23 Anion Gap 19 H Blood Urea Nitrogen 43 H Creatinine 7.56 H Glucose Level 87 Hemoglobin A1c 5.3 Uric Acid 6.2 Calcium Level 8.7 Phosphorus Level 6.1 H Magnesium Level 2.3 Lactate Dehydrogenase 397 Triglycerides Level 101 Cholesterol Level 110 LDL Cholesterol, Calculated 65 HDL Cholesterol 25 L Cholesterol/HDL Ratio 4.4 Carcinoembryonic Antigen 1.0 CA 19-9 Antigen 16.7 Immunoglobulin A 354 Immunoglobulin G 961 Immunoglobulin M 66 Medications Medications Current Medications Dextrose/Sodium Chloride (D5-1/2ns) 1,000 ml @ 50 mls/hr Q20H IV Last administered on 05/28/17 18:57; Admin Dose 50 MLS/HR; Start 05/28/17 at 17:08 Ondansetron HCl (Zofran Inj) 4 mg Q6H PRN IV NAUSEA AND/OR VOMITING; Start at 17:30 Acetaminophen (Tylenol Tab) 650 mg Q6H PRN PO PAIN LEVEL 1-3 OR FEVER; Start at 17:30 Acetaminophen/ Hydrocodone Bitart ([place] (5/325)) 1 tab Q6H PRN PO MODERATE PAIN LEVEL 4-6 Last administered on 05/29/17 00:00; Admin Dose 1 TAB; Start at 17:30 Hydromorphone HCl (Dilaudid) 0.5 mg Q3 PRN IV SEVERE PAIN LEVEL 7-10 Last administered on 05/28/17 20:48; Admin Dose 0.5 MG; Start 05/28/17 at 17:30 Docusate Sodium (Colace) 100 mg Q12H PRN PO CONSTIPATION; Start 05/28/17 at 17: 30 Zolpidem Tartrate (Ambien) 5 mg QHS PRN PO SLEEP; Start 05/28/17 at 17:30 Lorazepam (Ativan) 1 mg Q10MIN PRN IV SEIZURES; Start 05/28/17 at 17:30 Lamotrigine (Lamictal) 150 mg BID PO Last administered on 05/29/17 08:55; Admin Dose 150 MG; Start 05/28/17 at 21:00 Hydralazine HCl (Apresoline) 10 mg Q4 PRN IV SBP>160 Last administered on 00:07; Admin Dose 10 MG; Start 05/29/17 at 01:00 Amlodipine Besylate (Norvasc) 10 mg DAILY PO Last administered on 05/29/17 08: 54; Admin Dose 10 MG; Start 05/29/17 at 09:00 Allopurinol (Zyloprim) 100 mg DAILY PO Last administered on 05/29/17 08:52; Admin Dose 100 MG; Start 05/29/17 at 09:00 STACEY BARTH MD May 29, 2017 13:45
[2017-05-29] MEDS ORDERED: FUROSEMIDE 40 MG INJ IV ONE (14:30)
--- NOTE | 2017-05-29 15:00 | PN ---
Date/Time of Note Date/Time of Note DATE: 05/29/17 TIME: 14:58 Assessment/Plan VTE Prophylaxis VTE Prophylaxis Intervention: SCD's Lines/Catheters IV Catheter Type (from Nrsg): Peripheral IV Assessment/Plan Chief Complaint/Hosp Course 1. Abdominal pain secondary to possibly lymphoid type versus GI with bilateral hydronephrosis and carcinomatosis GI and oncology consultation as well as urology consultations appreciated, plan is for EGD with biopsy today then ureteral stent for bilateral hydronephrosis CT brain and chest show no metastasis Pain control 2. Acute kidney injury secondary to obstructive uropathy with bilateral hydronephrosis from retroperitoneal adenopathy and carcinomatosis Urology and nephrology consultations appreciated, patient will need a ureteral stent placed 3. History of seizures Continue home Lamictal 4. Normocytic anemia likely secondary chronic disease Monitor Prophylaxis: SCDs Problems: Subjective 24 Hr Interval Summary Constitutional: no complaints Exam/Review of Systems Vital Signs Vitals Vital Signs Date Time Temp Pulse Resp B/P Pulse Ox O2 Delivery O2 Flow Rate FiO2 05/29/17 13:50 98.4 91 18 151/96 99 Room Air Intake and Output 05/28/17 05/28/17 05/29/17 15:00 23:00 07:00 Intake Total 500 ml Balance 500 ml Exam Constitutional: alert, oriented Respiratory: clear to auscultation Cardiovascular: regular rate and rhythm Gastrointestinal: soft, tender, No distended Musculoskeletal: nl extremities to inspection Results Result Diagram: 05/29/17 0504 05/29/17 0504 Results 24 hrs Laboratory Tests Test 05/29/17 05:04 White Blood Count 4.7 #L Red Blood Count 3.39 L Hemoglobin 9.6 L Hematocrit 31.8 L Mean Corpuscular Volume 93.8 Mean Corpuscular Hemoglobin 28.3 L Mean Corpuscular Hemoglobin Concent 30.2 L Red Cell Distribution Width 15.5 H Platelet Count 440 H Mean Platelet Volume 9.2 Neutrophils % 60.4 Lymphocytes % 19.6 Monocytes % 15.6 H Eosinophils % 3.8 Basophils % 0.4 Nucleated Red Blood Cells % 0.0 Neutrophils # 2.9 Lymphocytes # 0.9 Monocytes # 0.7 Eosinophils # 0.2 Basophils # 0.0 Nucleated Red Blood Cells # 0.0 Prothrombin Time 13.2 Prothrombin Time Ratio 1.0 INR International Normalized Ratio 1.00 Activated Partial Thromboplast Time 35.4 H Sodium Level 143 Potassium Level 5.7 H Chloride Level 107 Carbon Dioxide Level 23 Anion Gap 19 H Blood Urea Nitrogen 43 H Creatinine 7.56 H Glucose Level 87 Hemoglobin A1c 5.3 Uric Acid 6.2 Calcium Level 8.7 Phosphorus Level 6.1 H Magnesium Level 2.3 Lactate Dehydrogenase 397 Triglycerides Level 101 Cholesterol Level 110 LDL Cholesterol, Calculated 65 HDL Cholesterol 25 L Cholesterol/HDL Ratio 4.4 Carcinoembryonic Antigen 1.0 CA 19-9 Antigen 16.7 Immunoglobulin A 354 Immunoglobulin G 961 Immunoglobulin M 66 Medications Medications Current Medications Dextrose/Sodium Chloride (D5-1/2ns) 1,000 ml @ 50 mls/hr Q20H IV Last administered on 05/28/17 18:57; Admin Dose 50 MLS/HR; Start 05/28/17 at 17:08 Ondansetron HCl (Zofran Inj) 4 mg Q6H PRN IV NAUSEA AND/OR VOMITING; Start at 17:30 Acetaminophen (Tylenol Tab) 650 mg Q6H PRN PO PAIN LEVEL 1-3 OR FEVER; Start at 17:30 Acetaminophen/ Hydrocodone Bitart ([place] (5/325)) 1 tab Q6H PRN PO MODERATE PAIN LEVEL 4-6 Last administered on 05/29/17 00:00; Admin Dose 1 TAB; Start at 17:30 Hydromorphone HCl (Dilaudid) 0.5 mg Q3 PRN IV SEVERE PAIN LEVEL 7-10 Last administered on 05/28/17 20:48; Admin Dose 0.5 MG; Start 05/28/17 at 17:30 Docusate Sodium (Colace) 100 mg Q12H PRN PO CONSTIPATION; Start 05/28/17 at 17: 30 Zolpidem Tartrate (Ambien) 5 mg QHS PRN PO SLEEP; Start 05/28/17 at 17:30 Lorazepam (Ativan) 1 mg Q10MIN PRN IV SEIZURES; Start 05/28/17 at 17:30 Lamotrigine (Lamictal) 150 mg BID PO Last administered on 05/29/17 08:55; Admin Dose 150 MG; Start 05/28/17 at 21:00 Hydralazine HCl (Apresoline) 10 mg Q4 PRN IV SBP>160 Last administered on 00:07; Admin Dose 10 MG; Start 05/29/17 at 01:00 Amlodipine Besylate (Norvasc) 10 mg DAILY PO Last administered on 05/29/17 08: 54; Admin Dose 10 MG; Start 05/29/17 at 09:00 Allopurinol (Zyloprim) 100 mg DAILY PO Last administered on 05/29/17 08:52; Admin Dose 100 MG; Start 05/29/17 at 09:00 JESUS VALERIO May 29, 2017 15:00
[2017-05-29] MEDS: HYDROmorphONE 1 MG/ML SYG IV PRN (16:06)
--- NOTE | 2017-05-29 17:50 | PN ---
Date/Time of Note Date/Time of Note DATE: 05/29/17 TIME: 17:43 Assessment/Plan VTE Prophylaxis VTE Prophylaxis Intervention: ambulation Lines/Catheters IV Catheter Type (from Nrs): Peripheral IV Assessment/Plan Chief Complaint/Hosp Course Mass in the stomach, patient going to have EGD tonight Bilateral hydronephrosis most likely secondary to encasement of the ureters by a retroperitoneal adenopathy, patient scheduled for cystoscopy bilateral retrograde pyelograms and insertion of bilateral JJ stents at 7:30 AM Renal failure because of the hydronephrosis History of seizures Problems: Assessment/Plan Bilateral hydronephrosis, plan for cystoscopy bilateral retrograde pyelograms and insertion of bilateral JJ stents at 7:30 AM The procedure was explained to the patient in details, the purpose of the JJ stents were discussed and the need to have them changed every 3 months as long as the kidneys are obstructed. Once the kidneys are no longer obstructed the stents could be removed Subjective 24 Hr Interval Summary Constitutional: no complaints Eyes: no complaints ENT: no complaints Respiratory: no complaints, No cough, No pain Cardiovascular: no complaints, No chest pain, No edema Gastrointestinal: other (Patient going for EGD tonight) Genitourinary: No bleeding, No dysuria, No hematuria Musculoskeletal: no complaints Skin: no complaints Neurologic: no complaints Endocrine: no complaints Lymphatic: no complaints Psychological: no complaints Immunologic: no complaints Exam/Review of Systems Vital Signs Vitals Vital Signs Date Time Temp Pulse Resp B/P Pulse Ox O2 Delivery O2 Flow Rate FiO2 05/29/17 13:50 98.4 91 18 151/96 99 Room Air Intake and Output 05/28/17 05/28/17 05/29/17 15:00 23:00 07:00 Intake Total 500 ml Balance 500 ml Exam Constitutional: alert, oriented Psych: no complaints Head: normocephalic Eyes: nl conjunctiva ENMT: nl external ears & nose Neck: supple, No thyromegaly Respiratory: normal air movement Cardiovascular: No edema Gastrointestinal: non-tender, soft Genitourinary - Male: other (Urine is clear), No CVA tenderness Musculoskeletal: nl extremities to inspection Extremities: No calf tenderness Skin: nl turgor Results Result Diagram: 05/29/17 0504 05/29/17 0504 Results 24 hrs Laboratory Tests Test 05/29/17 05:04 White Blood Count 4.7 #L Red Blood Count 3.39 L Hemoglobin 9.6 L Hematocrit 31.8 L Mean Corpuscular Volume 93.8 Mean Corpuscular Hemoglobin 28.3 L Mean Corpuscular Hemoglobin Concent 30.2 L Red Cell Distribution Width 15.5 H Platelet Count 440 H Mean Platelet Volume 9.2 Neutrophils % 60.4 Lymphocytes % 19.6 Monocytes % 15.6 H Eosinophils % 3.8 Basophils % 0.4 Nucleated Red Blood Cells % 0.0 Neutrophils # 2.9 Lymphocytes # 0.9 Monocytes # 0.7 Eosinophils # 0.2 Basophils # 0.0 Nucleated Red Blood Cells # 0.0 Prothrombin Time 13.2 Prothrombin Time Ratio 1.0 INR International Normalized Ratio 1.00 Activated Partial Thromboplast Time 35.4 H Sodium Level 143 Potassium Level 5.7 H Chloride Level 107 Carbon Dioxide Level 23 Anion Gap 19 H Blood Urea Nitrogen 43 H Creatinine 7.56 H Glucose Level 87 Hemoglobin A1c 5.3 Uric Acid 6.2 Calcium Level 8.7 Phosphorus Level 6.1 H Magnesium Level 2.3 Lactate Dehydrogenase 397 Triglycerides Level 101 Cholesterol Level 110 LDL Cholesterol, Calculated 65 HDL Cholesterol 25 L Cholesterol/HDL Ratio 4.4 Carcinoembryonic Antigen 1.0 CA 19-9 Antigen 16.7 Immunoglobulin A 354 Immunoglobulin G 961 Immunoglobulin M 66 Medications Medications Current Medications Dextrose/Sodium Chloride (D5-1/2ns) 1,000 ml @ 50 mls/hr Q20H IV Last administered on 05/28/17 18:57; Admin Dose 50 MLS/HR; Start 05/28/17 at 17:08 Ondansetron HCl (Zofran Inj) 4 mg Q6H PRN IV NAUSEA AND/OR VOMITING; Start at 17:30 Acetaminophen (Tylenol Tab) 650 mg Q6H PRN PO PAIN LEVEL 1-3 OR FEVER; Start at 17:30 Acetaminophen/ Hydrocodone Bitart ([place] (5/325)) 1 tab Q6H PRN PO MODERATE PAIN LEVEL 4-6 Last administered on 05/29/17 00:00; Admin Dose 1 TAB; Start at 17:30 Hydromorphone HCl (Dilaudid) 0.5 mg Q3 PRN IV SEVERE PAIN LEVEL 7-10 Last administered on 05/29/17 16:06; Admin Dose 0.5 MG; Start 05/28/17 at 17:30 Docusate Sodium (Colace) 100 mg Q12H PRN PO CONSTIPATION; Start 05/28/17 at 17: 30 Zolpidem Tartrate (Ambien) 5 mg QHS PRN PO SLEEP; Start 05/28/17 at 17:30 Lorazepam (Ativan) 1 mg Q10MIN PRN IV SEIZURES; Start 05/28/17 at 17:30 Lamotrigine (Lamictal) 150 mg BID PO Last administered on 05/29/17 08:55; Admin Dose 150 MG; Start 05/28/17 at 21:00 Hydralazine HCl (Apresoline) 10 mg Q4 PRN IV SBP>160 Last administered on 00:07; Admin Dose 10 MG; Start 05/29/17 at 01:00 Amlodipine Besylate (Norvasc) 10 mg DAILY PO Last administered on 05/29/17 08: 54; Admin Dose 10 MG; Start 05/29/17 at 09:00 Allopurinol (Zyloprim) 100 mg DAILY PO Last administered on 05/29/17 08:52; Admin Dose 100 MG; Start 05/29/17 at 09:00 Procedures Procedures Patient was just picked up for upper GI endoscopy ANDREW DUDLEY MD May 29, 2017 17:49
[2017-05-29] MEDS ORDERED: PROPOFOL 20 ML ONE (17:52)
[2017-05-29] MEDS ORDERED: LIDOCAINE 2% (SDV) 5 ML INJ ONE (17:52)
[2017-05-29] MEDS ORDERED: MIDAZOLAM 1 MG/ML 2 ML INJ ONE (17:53)
[2017-05-29] MEDS ORDERED: ONDANSETRON 4 MG INJ IV PRN (18:00)
[2017-05-29] MEDS ORDERED: MEPERIDINE 25 MG INJ IV PRN (18:00)
[2017-05-29] MEDS ORDERED: METOCLOPRAMIDE 10 MG INJ IV PRN (18:00)
[2017-05-29] MEDS ORDERED: DIPHENHYDRAMINE 50 MG INJ IV PRN (18:00)
[2017-05-29] MEDS ORDERED: OXYCODONE/ACETAMINOPHEN (5/325) TAB PO PRN (18:00)
--- NOTE | 2017-05-29 18:00 | QN ---
Documentation Comment Pt is off floor for procedure. Nurse says that EGD with biopsy is planned. We will f/u tomorrow for the results. KAEL GOLDEN MD May 29, 2017 18:00
[2017-05-29 18:08] LABS: CALCIUM 8.2 mg/dl (8.4-10.2); CREATININE 8.02 mg/dl (0.61-1.24); POTASSIUM 5.5 mmol/L (3.5-5.1)
--- NOTE | 2017-05-29 18:18 | OPR ---
Date/Time of Note Date/Time of Note DATE: 05/29/17 TIME: 18:16 Operative Report Preoperative Diagnosis * Gastric mass on CT Postoperative Diagnosis Impression: * Large circumferential, partially obstructing, clearly malignant mass in the antrum of the stomach. Biopsies obtained * Retained material in the fundus of the stomach, no gross masses identified in this area but examination is suboptimal Plan: * PPI plus Reglan * Review pathology as soon as available . Operation/Procedure Performed * EGD with biopsies Surgeon: STACEY BARTH MD Anesthesia: MAC Estimated Blood Loss: none Specimens * Gastric antral mass Grafts/Implants * None Complications: None STACEY BARTH MD May 29, 2017 18:18
--- NOTE | 2017-05-29 18:19 | HPN ---
Date/Time of Note Date/Time of Note DATE: 05/29/17 TIME: 18:18 Interval H&P Admission Note Pt. seen H&P reviewed: No system changes STACEY BARTH MD May 29, 2017 18:19
[2017-05-29] MEDS ORDERED: LORAZEPAM 2 MG INJ IV ONE (20:00)
[2017-05-29] MEDS ORDERED: DEXTROSE 5%-0.45% NACL 1,000 ML IV SCH (20:00)
[2017-05-29] MEDS ORDERED: NA POLYST SULFON 15 GM/60 ML BTL PO ONE (21:00)
[2017-05-29] MEDS ORDERED: LORAZEPAM 2 MG INJ IV PRN (21:00)
[2017-05-29] MEDS ORDERED: LEVETIRACETAM 1000 MG (PMX) 100 ML IVPB SCH (21:30)
[2017-05-29] MEDS ORDERED: clonAZEPAM 0.5 MG TAB PO PRN (22:00)
[2017-05-29] MEDS: METOCLOPRAMIDE 10 MG INJ IV SCH (23:41)
[2017-05-30] VITALS (22 sets, daily range): BP systolic 126–183; BP diastolic 72–118; PULSE 86–107; RESP 16–27
[2017-05-30 00:20] LABS: PROTEIN, TOTAL 5.4 g/dL (6.1-8.1)
[2017-05-30] MEDS: METOCLOPRAMIDE 10 MG INJ IV SCH ×3 (05:53→17:52)
[2017-05-30] MEDS: PANTOPRAZOLE 40 MG INJ IV SCH ×2 (05:53→17:52)
--- NOTE | 2017-05-30 06:12 | EN ---
Date/Time of Note Date/Time of Note DATE: 05/30/17 TIME: 06:09 Event Note Medicine Medicine Event Note Mr. Millan had a seizure last night for which he was given ativan, which was quickly effective. This morning, he is AAOx3. Vitals show sinus rhythm. He is not actively having chest pain. He is scheduled for urological procedure with cystoscopy this am. He may proceed with planned procedure without further cardiac risk stratification MEAGHAN MASSEY MD May 30, 2017 06:12
[2017-05-30] MEDS ORDERED: IOHEXOL 300MG/ML 30 ML BTL ONE (07:00)
[2017-05-30 07:07] LABS: ADD SCAN DIFF NO
[2017-05-30 07:18] LABS: BASOPHILS % 0.4 % (0.0-2.0); EOSINOPHILS # 0.2 10^3/ul (0.0-0.5); EOSINOPHILS % 4.3 % (0.0-7.0); HEMATOCRIT 30.9 % (42.0-52.0); HEMOGLOBIN 9.4 g/dl (14.0-18.0); LYMPHOCYTES % 21.2 % (15.0-51.0); MEAN CORPUSCULAR HEMOGLOBIN 28.5 pg (29.0-33.0); MEAN CORPUSCULAR HGB CONC 30.4 g/dl (32.0-37.0); MEAN CORPUSCULAR VOLUME 93.6 fl (82.0-101.0); MEAN PLATELET VOLUME 9.4 fl (7.4-10.4); MONOCYTE # 0.8 10^3/ul (0.3-0.9); MONOCYTES % 17.9 % (0.0-11.0); NEUTROPHIL # 2.6 10^3/ul (1.6-7.5); PLATELET COUNT 422 10^3/UL (140-415); RED CELL DISTRIBUTION WIDTH 15.6 % (11.5-14.5); WHITE BLOOD COUNT 4.6 10^3/ul (4.8-10.8)
[2017-05-30] MEDS ORDERED: PROPOFOL 20 ML ONE (07:29)
[2017-05-30] MEDS ORDERED: LIDOCAINE 2% (SDV) 5 ML INJ ONE (07:29)
[2017-05-30] MEDS ORDERED: MIDAZOLAM 1 MG/ML 2 ML INJ ONE (07:29)
[2017-05-30] MEDS ORDERED: FENTAnyl 50 MCG/ML VIAL ONE (07:29)
[2017-05-30 07:41] LABS: CALCIUM 8.5 mg/dl (8.4-10.2); CREATININE 8.63 mg/dl (0.61-1.24); POTASSIUM 5.1 mmol/L (3.5-5.1)
[2017-05-30] MEDS ORDERED: ONDANSETRON 4 MG INJ ONE (07:42)
[2017-05-30] MEDS ORDERED: CEFAZOLIN 1 GM INJ ONE (07:42)
[2017-05-30] MEDS ORDERED: IOHEXOL 300MG/ML 150 ML BTL INJ ONE (07:44)
[2017-05-30] MEDS ORDERED: OXYCODONE/ACETAMINOPHEN (5/325) TAB PO PRN (08:00)
[2017-05-30] MEDS ORDERED: FENTAnyl 50 MCG/ML VIAL IV PRN (08:00)
[2017-05-30] MEDS ORDERED: DIPHENHYDRAMINE 50 MG INJ IV PRN (08:00)
[2017-05-30] MEDS ORDERED: hydrALAzine 20 MG INJ IV PRN (08:00)
[2017-05-30] MEDS ORDERED: LABETALOL HCL 20MG INJ IV PRN (08:00)
[2017-05-30] MEDS ORDERED: ONDANSETRON 4 MG INJ IV PRN (08:00)
[2017-05-30] MEDS ORDERED: MEPERIDINE 25 MG INJ IV PRN (08:00)
[2017-05-30] MEDS ORDERED: METOCLOPRAMIDE 10 MG INJ ONE (08:14)
--- NOTE | 2017-05-30 08:38 | OPR ---
Date/Time of Note Date/Time of Note DATE: 05/30/17 TIME: 08:28 Operative Report Procedure Date: May 30, 2017 Preoperative Diagnosis Bilateral hydronephrosis and renal failure Postoperative Diagnosis Bilateral hydronephrosis and renal failure Operation Performed Cystoscopy bilateral retrograde pyelograms and insertion of bilateral ureteral JJ stents size 6Fr x 24 cm long Surgeon: ANDREW DUDLEY MD Anesthesia: general, MAC Anesthesiologist: KATERINA CHENG MD Estimated Blood Loss: none Grafts/Implants * None Complications: None Indications Bilateral hydronephrosis and renal failure Operative\Procedure Findings Bilateral hydronephrosis, the ureters were medially deviated and narrow mostly around the sacroiliac area. Procedure Description Patient was brought to the operating room and general anesthesia was induced. Time out was done the patient was identified by his name, date and the procedure. He was given 1 g of Ancef IV at the start of the procedure. He was then positioned in the lithotomy position and the genital area was prepped and draped in the usual sterile manner. A 21 [place] cystoscope sheath was introduced under direct vision through the penile urethra all the way to the bladder the bladder appeared to be clean was no evidence of tumor ulcerations or stones. The left ureteral orifice was then identified and cannulated with a 5 Cuban open ended catheter. A zip wire was passed through the open ended under fluoroscopy and advanced to the kidney. The open-ended was then advanced into the ureter and the zip wire was removed and a left retrograde pyelogram was then done. Then I reintroduced the zip wire through the open ended and advanced into the kidney and removed the open ended. A 6 [place] by 24 cm long JJ stent was then advanced on the zip wire under fluoroscopy and had its proximal end curling into the kidney and the distal end curling into the bladder. The same procedure was done on the right side and another 6 [place] by 24 cm long JJ stent was inserted. The bladder was then emptied and the patient was transferred to recovery room in stable and satisfactory condition ANDREW DUDLEY MD May 30, 2017 08:38
[2017-05-30] MEDS ORDERED: LORAZEPAM 2 MG INJ IV PRN (09:00)
[2017-05-30] MEDS: LAMOTRIGINE 100 MG TAB PO SCH ×2 (09:41→20:40)
[2017-05-30] MEDS: AMLODIPINE 10 MG TAB PO SCH (09:41)
[2017-05-30] MEDS: ALLOPURINOL 100 MG TAB PO SCH (09:42)
--- NOTE | 2017-05-30 13:32 | PN ---
Date/Time of Note Date/Time of Note DATE: 05/30/17 TIME: 13:28 Assessment/Plan VTE Prophylaxis VTE Prophylaxis Intervention: ambulation Lines/Catheters IV Catheter Type (from Nrsg): [place] Assessment/Plan Assessment/Plan Assessment * Abdominal pain * EGD * Large circumferential, partially obstructing, clearly malignant mass in the antrum of the stomach. Biopsies obtained * Retained material in the fundus of the stomach, no gross masses identified in this area but examination is suboptimal Plan will await biopsy results further orders will depend on clinical; course case discussed with Subjective 24 Hr Interval Summary Free Text/Dictation * Course reviewed with RN * Patient seen and examined * EGD Large circumferential, partially obstructing, clearly malignant mass in the antrum of the stomach. Biopsies obtained * Retained material in the fundus of the stomach, no gross masses identified in this area but examination is suboptimal Exam/Review of Systems Vital Signs Vitals Vital Signs Date Time Temp Pulse Resp B/P Pulse Ox O2 Delivery O2 Flow Rate FiO2 05/30/17 12:28 89 05/30/17 11:25 98.3 18 145/88 99 05/30/17 09:38 Room Air 05/30/17 08:40 8.0 Intake and Output 05/29/17 05/29/17 05/30/17 14:59 22:59 06:59 Intake Total 500 ml 1120 ml 120 ml Balance 500 ml 1120 ml 120 ml Exam Constitutional: alert, oriented Psych: no complaints Neck: non-tender, supple Respiratory: clear to auscultation, normal air movement Cardiovascular: nl pulses, regular rate and rhythm Gastrointestinal: non-tender, soft Musculoskeletal: nl extremities to inspection, nl gait and stance Extremities: normal pulses Neurological: nl speech, nl strength Skin: nl turgor Results Result Diagram: 05/30/17 0644 05/30/17 0644 Results 24 hrs Laboratory Tests Test 05/29/17 17:07 05/29/17 19:55 05/30/17 06:44 Sodium Level 141 145 H Potassium Level 5.5 H 5.1 Chloride Level 110 108 Carbon Dioxide Level 20 L 21 Anion Gap 17 H 21 H Blood Urea Nitrogen 42 H 47 H Creatinine 8.02 H 8.63 H Glucose Level 85 85 Calcium Level 8.2 L 8.5 Bedside Glucose 76 White Blood Count 4.6 L Red Blood Count 3.30 L Hemoglobin 9.4 L Hematocrit 30.9 L Mean Corpuscular Volume 93.6 Mean Corpuscular Hemoglobin 28.5 L Mean Corpuscular Hemoglobin Concent 30.4 L Red Cell Distribution Width 15.6 H Platelet Count 422 H Mean Platelet Volume 9.4 Neutrophils % 56.0 Lymphocytes % 21.2 Monocytes % 17.9 H Eosinophils % 4.3 Basophils % 0.4 Nucleated Red Blood Cells % 0.0 Neutrophils # 2.6 Lymphocytes # 1.0 Monocytes # 0.8 Eosinophils # 0.2 Basophils # 0.0 Nucleated Red Blood Cells # 0.0 Medications Medications Current Medications Ondansetron HCl (Zofran Inj) 4 mg Q6H PRN IV NAUSEA AND/OR VOMITING; Start at 17:30 Acetaminophen (Tylenol Tab) 650 mg Q6H PRN PO PAIN LEVEL 1-3 OR FEVER; Start at 17:30 Acetaminophen/ Hydrocodone Bitart ([place] (5/325)) 1 tab Q6H PRN PO MODERATE PAIN LEVEL 4-6 Last administered on 05/29/17 00:00; Admin Dose 1 TAB; Start at 17:30 Hydromorphone HCl (Dilaudid) 0.5 mg Q3 PRN IV SEVERE PAIN LEVEL 7-10 Last administered on 05/29/17 16:06; Admin Dose 0.5 MG; Start 05/28/17 at 17:30 Docusate Sodium (Colace) 100 mg Q12H PRN PO CONSTIPATION; Start 05/28/17 at 17: 30 Zolpidem Tartrate (Ambien) 5 mg QHS PRN PO SLEEP; Start 05/28/17 at 17:30 Lamotrigine (Lamictal) 150 mg BID PO Last administered on 05/30/17 09:41; Admin Dose 150 MG; Start 05/28/17 at 21:00 Hydralazine HCl (Apresoline) 10 mg Q4 PRN IV SBP>160 Last administered on 00:07; Admin Dose 10 MG; Start 05/29/17 at 01:00 Amlodipine Besylate (Norvasc) 10 mg DAILY PO Last administered on 05/30/17 09: 41; Admin Dose 10 MG; Start 05/29/17 at 09:00 Allopurinol (Zyloprim) 100 mg DAILY PO Last administered on 05/30/17 09:42; Admin Dose 100 MG; Start 05/29/17 at 09:00 Metoclopramide HCl (Reglan) 10 mg Q6 IV Last administered on 05/30/17 12:25; Admin Dose 10 MG; Start 05/30/17 at 00:00 Pantoprazole (Protonix Iv) 40 mg BID@ IV Last administered on 05/30/17 05 :53; Admin Dose 40 MG; Start 05/30/17 at 06:00 Lorazepam (Ativan) 2 mg Q1H PRN IV SEIZURES; Start 05/29/17 at 21:00 Clonazepam (Klonopin) 1 mg Q8H PRN PO ANXIETY; Start 05/29/17 at 22:00 KELLEY BUSTOS NP May 30, 2017 13:31
--- NOTE | 2017-05-30 14:28 | CONS ---
Date/Time of Note Date/Time of Note DATE: 05/30/17 TIME: 14:26 Assessment/Plan Assessment/Plan Additional Assessment/Plan 37 yo Male with 1) EDWIN 2) Hydronephrosis 3) Hyperkalemia- Resolved 4) Gastritis 5) Lymphadenopathy S/p Cystoscopy and Ureteral stent placement Good UO, Non oliguric Cr has improved slightly No acute indication for HD at this time Will cont to monitor UO, Electrolytes, Renal function closely. Consultation Date/Type/Reason Admit Date/Time May 28, 2017 at 17:01 Initial Consult Date 05/28/17 Type of Consultation: Renal Referring Provider: JESUS VALERIO 24 HR Interval Summary Free Text/Dictation S/p EGD yesterday, S/p Cystoscopy and stent Exam/Review of Systems Vital Signs Vitals Vital Signs Date Time Temp Pulse Resp B/P Pulse Ox O2 Delivery O2 Flow Rate FiO2 05/30/17 12:28 89 05/30/17 11:25 98.3 18 145/88 99 05/30/17 09:38 Room Air 05/30/17 08:40 8.0 Intake and Output 05/29/17 05/29/17 05/30/17 15:00 23:00 07:00 Intake Total 1120 ml 120 ml Balance 1120 ml 120 ml Exam Constitutional: alert, No distress ENMT: mucosa pink and moist Neck: No jvd Respiratory: clear to auscultation Cardiovascular: regular rate and rhythm, No edema Gastrointestinal: distended, soft, tender Neurological: ACCOUNTS RECEIVABLE ACCOUNTANT II-XII intact, nl mental status Results Result Diagram: 05/30/17 0644 05/30/17 0644 Results 24 hrs Laboratory Tests Test 05/29/17 17:07 05/29/17 19:55 05/30/17 06:44 Sodium Level 141 145 H Potassium Level 5.5 H 5.1 Chloride Level 110 108 Carbon Dioxide Level 20 L 21 Anion Gap 17 H 21 H Blood Urea Nitrogen 42 H 47 H Creatinine 8.02 H 8.63 H Glucose Level 85 85 Calcium Level 8.2 L 8.5 Bedside Glucose 76 White Blood Count 4.6 L Red Blood Count 3.30 L Hemoglobin 9.4 L Hematocrit 30.9 L Mean Corpuscular Volume 93.6 Mean Corpuscular Hemoglobin 28.5 L Mean Corpuscular Hemoglobin Concent 30.4 L Red Cell Distribution Width 15.6 H Platelet Count 422 H Mean Platelet Volume 9.4 Neutrophils % 56.0 Lymphocytes % 21.2 Monocytes % 17.9 H Eosinophils % 4.3 Basophils % 0.4 Nucleated Red Blood Cells % 0.0 Neutrophils # 2.6 Lymphocytes # 1.0 Monocytes # 0.8 Eosinophils # 0.2 Basophils # 0.0 Nucleated Red Blood Cells # 0.0 Medications Medications Current Medications Ondansetron HCl (Zofran Inj) 4 mg Q6H PRN IV NAUSEA AND/OR VOMITING; Start at 17:30 Acetaminophen (Tylenol Tab) 650 mg Q6H PRN PO PAIN LEVEL 1-3 OR FEVER; Start at 17:30 Acetaminophen/ Hydrocodone Bitart ([place] (5/325)) 1 tab Q6H PRN PO MODERATE PAIN LEVEL 4-6 Last administered on 05/29/17 00:00; Admin Dose 1 TAB; Start at 17:30 Hydromorphone HCl (Dilaudid) 0.5 mg Q3 PRN IV SEVERE PAIN LEVEL 7-10 Last administered on 05/29/17 16:06; Admin Dose 0.5 MG; Start 05/28/17 at 17:30 Docusate Sodium (Colace) 100 mg Q12H PRN PO CONSTIPATION; Start 05/28/17 at 17: 30 Zolpidem Tartrate (Ambien) 5 mg QHS PRN PO SLEEP; Start 05/28/17 at 17:30 Lamotrigine (Lamictal) 150 mg BID PO Last administered on 05/30/17 09:41; Admin Dose 150 MG; Start 05/28/17 at 21:00 Hydralazine HCl (Apresoline) 10 mg Q4 PRN IV SBP>160 Last administered on 00:07; Admin Dose 10 MG; Start 05/29/17 at 01:00 Amlodipine Besylate (Norvasc) 10 mg DAILY PO Last administered on 05/30/17 09: 41; Admin Dose 10 MG; Start 05/29/17 at 09:00 Allopurinol (Zyloprim) 100 mg DAILY PO Last administered on 05/30/17 09:42; Admin Dose 100 MG; Start 05/29/17 at 09:00 Metoclopramide HCl (Reglan) 10 mg Q6 IV Last administered on 05/30/17 12:25; Admin Dose 10 MG; Start 05/30/17 at 00:00 Pantoprazole (Protonix Iv) 40 mg BID@ IV Last administered on 05/30/17 05 :53; Admin Dose 40 MG; Start 05/30/17 at 06:00 Lorazepam (Ativan) 2 mg Q1H PRN IV SEIZURES; Start 05/29/17 at 21:00 Clonazepam (Klonopin) 1 mg Q8H PRN PO ANXIETY; Start 05/29/17 at 22:00 TEE KEN MD May 30, 2017 14:28
--- NOTE | 2017-05-30 14:56 | RADRPT ---
PROCEDURE: Intraoperative imaging of the abdomen and pelvis with fluoroscopy. CLINICAL INDICATION: Bilateral hydronephrosis. Intraoperative. TECHNIQUE: 27 images of the abdomen and pelvis were obtained in the operating room with an image i ntensifier. No radiologist was in attendance. 135 seconds of fluoroscopy time was used. COMPARISON: CT scan of the abdomen and pelvis dated 05/28/2017. FINDINGS: The initial images demonstrate contrast injected into both collecting systems in a retrograde fashio n. There is bilateral moderate hydronephrosis. No obstructing lesion is seen. Subsequent images de monstrate placement of bilateral ureteral stents in satisfactory position. IMPRESSION: 1. Moderate bilateral hydronephrosis with no obstructing lesion visualized. 2. Placement of bilateral ureteral stents. RPTAT: QQ .William Ozuna MD, Date Time Electronically viewed and signed by .William Ozuna MD, on 05/30/2017 14:56 .R/
[2017-05-30 17:34] LABS: CALCIUM 9.1 mg/dl (8.4-10.2); CREATININE 6.62 mg/dl (0.61-1.24); POTASSIUM 5.4 mmol/L (3.5-5.1)
--- NOTE | 2017-05-30 17:35 | RADRPT ---
PROCEDURE: Renal US. CLINICAL INDICATION: Flank pain. Status post stent placement. TECHNIQUE: Multiple sonographic images of the kidneys were obtained. The images were reviewed on a PACS workstation. COMPARISON: No prior studies are available for comparison. FINDINGS: The kidneys are well visualized. The right kidney measures 10.3 cm. The left kidney measures 10.7 cm . There are no focal areas of abnormal echogenicity. There is no evidence for obstructive uropathy. Ureteral stents are seen within the urinary bladder. A small amount of ascites is seen adjacent to the urinary bladder as well as a trace amount in the right upper quadrant. IMPRESSION: 1. Small amount of ascites. 2. Ureteral stents identified in the urinary bladder. 3. Otherwise, unremarkable renal ultrasound. RPTAT: HPNM Physician Rowan Date Time Electronically viewed and signed by Physician Rowan on 05/30/2017 17:35 /
--- NOTE | 2017-05-30 18:03 | PN ---
Date/Time of Note Date/Time of Note DATE: 05/30/17 TIME: 18:00 Assessment/Plan VTE Prophylaxis VTE Prophylaxis Intervention: SCD's Lines/Catheters IV Catheter Type (from Nrsg): Saline Lock Assessment/Plan Chief Complaint/Hosp Course 1. Abdominal pain secondary to possibly lymphoid type versus GI with bilateral hydronephrosis and carcinomatosis GI and oncology consultation as well as urology consultations appreciated Status post EGD with biopsy, path pending Status post bilateral ureteral stent for bilateral hydronephrosis, patient now having high urine output CT brain and chest show no metastasis Pain control 2. Acute kidney injury secondary to obstructive uropathy with bilateral hydronephrosis from retroperitoneal adenopathy and carcinomatosis status post bilateral ureteral stents Urology and nephrology consultations appreciated 3. History of seizures-patient had a seizure last night Continue home Lamictal and Ativan as needed Obtain MRI of brain to rule out any malignancy in the brain as CT brain without contrast has lower resolution 4. Normocytic anemia likely secondary chronic disease Monitor Prophylaxis: SCDs Problems: Subjective 24 Hr Interval Summary Free Text/Dictation Patient had a seizure last night, currently stable with no complaints Exam/Review of Systems Vital Signs Vitals Vital Signs Date Time Temp Pulse Resp B/P Pulse Ox O2 Delivery O2 Flow Rate FiO2 05/30/17 16:28 98 05/30/17 15:04 98.1 18 133/78 96 05/30/17 09:38 Room Air 05/30/17 08:40 8.0 Intake and Output 05/29/17 05/29/17 05/30/17 15:00 23:00 07:00 Intake Total 1120 ml 120 ml Balance 1120 ml 120 ml Exam Constitutional: alert, oriented Respiratory: clear to auscultation Cardiovascular: regular rate and rhythm Gastrointestinal: soft, No distended Musculoskeletal: nl extremities to inspection Results Result Diagram: 05/30/17 0644 05/30/17 1645 Results 24 hrs Laboratory Tests Test 05/29/17 19:55 05/30/17 06:44 05/30/17 16:45 Bedside Glucose 76 White Blood Count 4.6 L Red Blood Count 3.30 L Hemoglobin 9.4 L Hematocrit 30.9 L Mean Corpuscular Volume 93.6 Mean Corpuscular Hemoglobin 28.5 L Mean Corpuscular Hemoglobin Concent 30.4 L Red Cell Distribution Width 15.6 H Platelet Count 422 H Mean Platelet Volume 9.4 Neutrophils % 56.0 Lymphocytes % 21.2 Monocytes % 17.9 H Eosinophils % 4.3 Basophils % 0.4 Nucleated Red Blood Cells % 0.0 Neutrophils # 2.6 Lymphocytes # 1.0 Monocytes # 0.8 Eosinophils # 0.2 Basophils # 0.0 Nucleated Red Blood Cells # 0.0 Sodium Level 145 H 145 H Potassium Level 5.1 5.4 H Chloride Level 108 111 H Carbon Dioxide Level 21 23 Anion Gap 21 H 16 Blood Urea Nitrogen 47 H 41 H Creatinine 8.63 H 6.62 #H Glucose Level 85 106 Calcium Level 8.5 9.1 Medications Medications Current Medications Ondansetron HCl (Zofran Inj) 4 mg Q6H PRN IV NAUSEA AND/OR VOMITING; Start at 17:30 Acetaminophen (Tylenol Tab) 650 mg Q6H PRN PO PAIN LEVEL 1-3 OR FEVER; Start at 17:30 Acetaminophen/ Hydrocodone Bitart ([place] (5/325)) 1 tab Q6H PRN PO MODERATE PAIN LEVEL 4-6 Last administered on 05/29/17 00:00; Admin Dose 1 TAB; Start at 17:30 Hydromorphone HCl (Dilaudid) 0.5 mg Q3 PRN IV SEVERE PAIN LEVEL 7-10 Last administered on 05/29/17 16:06; Admin Dose 0.5 MG; Start 05/28/17 at 17:30 Docusate Sodium (Colace) 100 mg Q12H PRN PO CONSTIPATION; Start 05/28/17 at 17: 30 Zolpidem Tartrate (Ambien) 5 mg QHS PRN PO SLEEP; Start 05/28/17 at 17:30 Lamotrigine (Lamictal) 150 mg BID PO Last administered on 05/30/17 09:41; Admin Dose 150 MG; Start 05/28/17 at 21:00 Hydralazine HCl (Apresoline) 10 mg Q4 PRN IV SBP>160 Last administered on 00:07; Admin Dose 10 MG; Start 05/29/17 at 01:00 Amlodipine Besylate (Norvasc) 10 mg DAILY PO Last administered on 05/30/17 09: 41; Admin Dose 10 MG; Start 05/29/17 at 09:00 Allopurinol (Zyloprim) 100 mg DAILY PO Last administered on 05/30/17 09:42; Admin Dose 100 MG; Start 05/29/17 at 09:00 Metoclopramide HCl (Reglan) 10 mg Q6 IV Last administered on 05/30/17 17:52; Admin Dose 10 MG; Start 05/30/17 at 00:00 Pantoprazole (Protonix Iv) 40 mg BID@18 IV Last administered on 05/30/17 17 :52; Admin Dose 40 MG; Start 05/30/17 at 06:00 Lorazepam (Ativan) 2 mg Q1H PRN IV SEIZURES; Start 05/29/17 at 21:00 Clonazepam (Klonopin) 1 mg Q8H PRN PO ANXIETY; Start 05/29/17 at 22:00 JESUS VALERIO May 30, 2017 18:03
--- NOTE | 2017-05-30 18:30 | PN ---
Date/Time of Note Date/Time of Note DATE: 05/30/17 TIME: 18:21 Assessment/Plan VTE Prophylaxis VTE Prophylaxis Intervention: ambulation Lines/Catheters IV Catheter Type (from Nrs): Saline Lock Assessment/Plan Chief Complaint/Hosp Course Back pain. Has had EGD with bx of gastric mass. Has also had cystoscopy with bilateral ureteral stents placed. Problems: (1) Lymphadenopathy, abdominal (2) Gastric mass (3) Hydronephrosis determined by ultrasound (4) Renal failure Assessment/Plan Results of gastric mass bx will not be available until 05/31. Although LDH is nl would still favor lymphoma or GIST. Stents placed. Will monitor renal function daily. Subjective 24 Hr Interval Summary Free Text/Dictation Pt states that he is feeling better. Appetite is good. Pain is under good control. Exam/Review of Systems Vital Signs Vitals Vital Signs Date Time Temp Pulse Resp B/P Pulse Ox O2 Delivery O2 Flow Rate FiO2 05/30/17 16:28 98 05/30/17 15:04 98.1 18 133/78 96 05/30/17 09:38 Room Air 05/30/17 08:40 8.0 Intake and Output 05/29/17 05/29/17 05/30/17 15:00 23:00 07:00 Intake Total 1120 ml 120 ml Balance 1120 ml 120 ml Exam Constitutional: alert, oriented, well developed Psych: nl mood/affect Head: atraumatic, normocephalic Eyes: EOMI, nl conjunctiva, nl lids ENMT: nl external ears & nose, nl lips & teeth, nl nasal mucosa & septum Neck: non-tender, supple Respiratory: clear to auscultation, normal air movement Cardiovascular: nl pulses, regular rate and rhythm Gastrointestinal: distended, nl liver, spleen, non-tender Musculoskeletal: nl extremities to inspection, nl gait and stance Extremities: normal pulses Neurological: GRADER MEAT II-XII intact, nl mental status Skin: nl turgor Lymph: nl lymph nodes Results Result Diagram: 05/30/17 0644 05/30/17 1645 Results 24 hrs Laboratory Tests Test 05/29/17 19:55 05/30/17 06:44 05/30/17 16:45 Bedside Glucose 76 White Blood Count 4.6 L Red Blood Count 3.30 L Hemoglobin 9.4 L Hematocrit 30.9 L Mean Corpuscular Volume 93.6 Mean Corpuscular Hemoglobin 28.5 L Mean Corpuscular Hemoglobin Concent 30.4 L Red Cell Distribution Width 15.6 H Platelet Count 422 H Mean Platelet Volume 9.4 Neutrophils % 56.0 Lymphocytes % 21.2 Monocytes % 17.9 H Eosinophils % 4.3 Basophils % 0.4 Nucleated Red Blood Cells % 0.0 Neutrophils # 2.6 Lymphocytes # 1.0 Monocytes # 0.8 Eosinophils # 0.2 Basophils # 0.0 Nucleated Red Blood Cells # 0.0 Sodium Level 145 H 145 H Potassium Level 5.1 5.4 H Chloride Level 108 111 H Carbon Dioxide Level 21 23 Anion Gap 21 H 16 Blood Urea Nitrogen 47 H 41 H Creatinine 8.63 H 6.62 #H Glucose Level 85 106 Calcium Level 8.5 9.1 Medications Medications Current Medications Ondansetron HCl (Zofran Inj) 4 mg Q6H PRN IV NAUSEA AND/OR VOMITING; Start at 17:30 Acetaminophen (Tylenol Tab) 650 mg Q6H PRN PO PAIN LEVEL 1-3 OR FEVER; Start at 17:30 Acetaminophen/ Hydrocodone Bitart ([place] (5/325)) 1 tab Q6H PRN PO MODERATE PAIN LEVEL 4-6 Last administered on 05/29/17 00:00; Admin Dose 1 TAB; Start at 17:30 Hydromorphone HCl (Dilaudid) 0.5 mg Q3 PRN IV SEVERE PAIN LEVEL 7-10 Last administered on 05/29/17 16:06; Admin Dose 0.5 MG; Start 05/28/17 at 17:30 Docusate Sodium (Colace) 100 mg Q12H PRN PO CONSTIPATION; Start 05/28/17 at 17: 30 Zolpidem Tartrate (Ambien) 5 mg QHS PRN PO SLEEP; Start 05/28/17 at 17:30 Lamotrigine (Lamictal) 150 mg BID PO Last administered on 05/30/17 09:41; Admin Dose 150 MG; Start 05/28/17 at 21:00 Hydralazine HCl (Apresoline) 10 mg Q4 PRN IV SBP>160 Last administered on 00:07; Admin Dose 10 MG; Start 05/29/17 at 01:00 Amlodipine Besylate (Norvasc) 10 mg DAILY PO Last administered on 05/30/17 09: 41; Admin Dose 10 MG; Start 05/29/17 at 09:00 Allopurinol (Zyloprim) 100 mg DAILY PO Last administered on 05/30/17 09:42; Admin Dose 100 MG; Start 05/29/17 at 09:00 Metoclopramide HCl (Reglan) 10 mg Q6 IV Last administered on 05/30/17 17:52; Admin Dose 10 MG; Start 05/30/17 at 00:00 Pantoprazole (Protonix Iv) 40 mg BID@18 IV Last administered on 05/30/17 17 :52; Admin Dose 40 MG; Start 05/30/17 at 06:00 Lorazepam (Ativan) 2 mg Q1H PRN IV SEIZURES; Start 05/29/17 at 21:00 Clonazepam (Klonopin) 1 mg Q8H PRN PO ANXIETY; Start 05/29/17 at 22:00 Copies To: CC: JESUS VALERIO STANLEY H MD May 30, 2017 18:30
[2017-05-30 18:47] LABS: ALBUMIN 2.6 g/dL (3.8-4.8)
--- NOTE | 2017-05-30 23:08 | RADRPT ---
PROCEDURE: MRI Brain without contrast. CLINICAL INDICATION: Seizure, renal failure. TECHNIQUE: An MRI of the brain was performed utilizing the following sequences: Sagittal and axial T1 weighted, axial T2 weighted, axial diffusion weighted with ADC mapping, coronal GRE, and axial F LAIR. COMPARISON: Brain CT 05/28/2017. FINDINGS: There are mild patchy areas of T2 and FLAIR hyperintensity in bilateral occipital subcortical white matter and parietal periventricular and deep white matter. No diffusion weighted abnormalities are seen to suggest the presence of acute ischemia or recent inf arct. No hypointense signal abnormalities are seen on the GRE images to suggest the presence of blo od degradation products. There is no evidence of intracranial hemorrhage, mass effect, or midline s hift. No extra-axial fluid collections are seen. The ventricles and sulci are age-appropriate. Bila teral hippocampi are symmetric in size and signal intensity. No abnormal intracranial vascular flow void is noted. The visualized paranasal sinuses are grossly clear. IMPRESSION: 1. No acute intracranial hemorrhage, infarction or mass. 2. Mild areas of T2 and FLAIR hyperintensity in bilateral occipital subcortical white matter and pa rietal periventricular and deep white matter. These findings can be seen in posterior reversal encep halopathy syndrome (PRES). Consider follow-up brain MRI as clinically warranted. RPTAT: HFN .Abbie Dsouza MD, Date Time Electronically viewed and signed by .Abbie Dsouza MD, on 05/30/2017 23:07 .N/
[2017-05-31] VITALS (9 sets, daily range): BP systolic 129–143; BP diastolic 78–84; PULSE 87–100; RESP 18–19
[2017-05-31] MEDS: PANTOPRAZOLE 40 MG INJ IV SCH (05:27)
[2017-05-31] MEDS: METOCLOPRAMIDE 10 MG INJ IV SCH ×3 (05:32→12:00)
[2017-05-31 08:35] LABS: CALCIUM 8.9 mg/dl (8.4-10.2); CREATININE 4.77 mg/dl (0.61-1.24); MAGNESIUM 1.7 mg/dl (1.7-2.5); POTASSIUM 4.9 mmol/L (3.5-5.1)
[2017-05-31] MEDS: LAMOTRIGINE 100 MG TAB PO SCH (09:38)
[2017-05-31] MEDS: ALLOPURINOL 100 MG TAB PO SCH (09:38)
[2017-05-31] MEDS: AMLODIPINE 10 MG TAB PO SCH (09:38)
[2017-05-31] MEDS ORDERED: MAGNESIUM SULFATE 4 GM/100 ML 100 ML IVPB ONE (14:00)
--- NOTE | 2017-05-31 14:32 | PN ---
Date/Time of Note Date/Time of Note DATE: 05/31/17 TIME: 14:28 Assessment/Plan VTE Prophylaxis VTE Prophylaxis Intervention: ambulation Lines/Catheters IV Catheter Type (from Nrs): Saline Lock Assessment/Plan Assessment/Plan Assessment * Gastric adenocarcinoma stomach Plan * management per oncology * case discussed with Dr Son * further orders will depend on clinical course Subjective 24 Hr Interval Summary Free Text/Dictation Course reviewed with RN Patient seen and examined No untoward events overnight Biopsy Gastric mass biopsy: -- Adenocarcinoma, moderately-differentiated, intestinal-type, focally mucinous , with focal surface ulceration and granulation tissue reaction. -- No Helicobacter pylori organisms are identified in a Giemsa stain (positive control concurrently reviewed). Exam/Review of Systems Vital Signs Vitals Vital Signs Date Time Temp Pulse Resp B/P Pulse Ox O2 Delivery O2 Flow Rate FiO2 05/31/17 12:43 100 05/31/17 12:21 98.0 18 143/83 99 05/30/17 09:38 Room Air 05/30/17 08:40 8.0 Intake and Output 05/30/17 05/30/17 05/31/17 15:00 23:00 07:00 Intake Total 200 ml 1320 ml 250 ml Output Total 350 ml 450 ml 450 ml Balance -150 ml 870 ml -200 ml Exam Constitutional: alert, oriented Neck: non-tender, supple Respiratory: clear to auscultation, normal air movement Cardiovascular: nl pulses, regular rate and rhythm Gastrointestinal: non-tender, soft Musculoskeletal: nl extremities to inspection, nl gait and stance Extremities: normal pulses Neurological: nl speech, nl strength Skin: nl turgor, No rash or lesions Results Result Diagram: 05/30/17 0644 05/31/17 0724 Results 24 hrs Laboratory Tests Test 05/30/17 16:45 05/31/17 07:24 Sodium Level 145 H 149 H Potassium Level 5.4 H 4.9 Chloride Level 111 H 108 Carbon Dioxide Level 23 29 Anion Gap 16 17 H Blood Urea Nitrogen 41 H 29 #H Creatinine 6.62 #H 4.77 #H Glucose Level 106 91 Calcium Level 9.1 8.9 Phosphorus Level 5.0 H Magnesium Level 1.7 Medications Medications Current Medications Ondansetron HCl (Zofran Inj) 4 mg Q6H PRN IV NAUSEA AND/OR VOMITING; Start at 17:30 Acetaminophen (Tylenol Tab) 650 mg Q6H PRN PO PAIN LEVEL 1-3 OR FEVER; Start at 17:30 Acetaminophen/ Hydrocodone Bitart ([place] (5/325)) 1 tab Q6H PRN PO MODERATE PAIN LEVEL 4-6 Last administered on 05/29/17 00:00; Admin Dose 1 TAB; Start at 17:30 Hydromorphone HCl (Dilaudid) 0.5 mg Q3 PRN IV SEVERE PAIN LEVEL 7-10 Last administered on 05/29/17 16:06; Admin Dose 0.5 MG; Start 05/28/17 at 17:30 Docusate Sodium (Colace) 100 mg Q12H PRN PO CONSTIPATION; Start 05/28/17 at 17: 30 Zolpidem Tartrate (Ambien) 5 mg QHS PRN PO SLEEP; Start 05/28/17 at 17:30 Lamotrigine (Lamictal) 150 mg BID PO Last administered on 05/31/17 09:38; Admin Dose 150 MG; Start 05/28/17 at 21:00 Hydralazine HCl (Apresoline) 10 mg Q4 PRN IV SBP>160 Last administered on 00:07; Admin Dose 10 MG; Start 05/29/17 at 01:00 Amlodipine Besylate (Norvasc) 10 mg DAILY PO Last administered on 05/31/17 09: 38; Admin Dose 10 MG; Start 05/29/17 at 09:00 Allopurinol (Zyloprim) 100 mg DAILY PO Last administered on 05/31/17 09:38; Admin Dose 100 MG; Start 05/29/17 at 09:00 Metoclopramide HCl (Reglan) 10 mg Q6 IV Last administered on 05/30/17 17:52; Admin Dose 10 MG; Start 05/30/17 at 00:00 Pantoprazole (Protonix Iv) 40 mg BID@18 IV Last administered on 05/31/17 05 :27; Admin Dose 40 MG; Start 05/30/17 at 06:00 Lorazepam (Ativan) 2 mg Q1H PRN IV SEIZURES; Start 05/29/17 at 21:00 Clonazepam 1 mg 1 mg Q8H PRN PO ANXIETY; Start 05/29/17 at 22:00 Magnesium Sulfate (Magnesium Sulfate 4 Gm/100 ml) 100 ml @ 25 mls/hr ONCE ONCE IVPB ; Start 05/31/17 at 14:00; Stop 05/31/17 at 17:59 KELLEY BUSTOS NP May 31, 2017 14:31
--- NOTE | 2017-05-31 15:05 | PN ---
Date/Time of Note Date/Time of Note DATE: 05/31/17 TIME: 15:01 Assessment/Plan VTE Prophylaxis VTE Prophylaxis Intervention: SCD's Lines/Catheters IV C[facility]from [facility] Saline Lock Assessment/Plan Chief Complaint/Hosp Course 1. Abdominal pain secondary to metastatic gastric adenocarcinoma bilateral hydronephrosis and carcinomatosis GI and oncology consultation as well as urology consultations appreciated Status post EGD with biopsy, path shows adenocarcinoma, patient has poor prognosis but may benefit from chemo Status post bilateral ureteral stent for bilateral hydronephrosis, patient now having high urine output CT brain and chest show no metastasis, MRI brain shows no brain metastases Pain control 2. Acute kidney injury secondary to obstructive uropathy with bilateral hydronephrosis from retroperitoneal adenopathy and carcinomatosis status post bilateral ureteral stents-improving Urology and nephrology consultations appreciated 3. History of seizures-patient had a seizure 2 nights ago currently stable Continue home Lamictal and Ativan as needed MRI brain shows some FLAIR signal hyperintensity likely from recent seizure 4. Normocytic anemia likely secondary chronic disease Monitor Prophylaxis: SCDs Problems: Subjective 24 Hr Interval Summary Constitutional: no complaints Exam/Review of Systems Vital Signs Vitals Vital Signs Date Time Temp Pulse Resp B/P Pulse Ox O2 Delivery O2 Flow Rate FiO2 05/31/17 12:43 100 05/31/17 12:21 98.0 18 143/83 99 05/30/17 09:38 Room Air 05/30/17 08:40 8.0 Intake and Output 05/30/17 05/30/17 05/31/17 15:00 23:00 07:00 Intake Total 200 ml 1320 ml 250 ml Output Total 350 ml 450 ml 450 ml Balance -150 ml 870 ml -200 ml Exam Constitutional: alert, oriented Respiratory: clear to auscultation Cardiovascular: regular rate and rhythm Gastrointestinal: soft, No distended Musculoskeletal: nl extremities to inspection Results Result Diagram: 05/30/17 0644 05/31/17 0724 Results 24 hrs Laboratory Tests Test 05/30/17 16:45 05/31/17 07:24 Sodium Level 145 H 149 H Potassium Level 5.4 H 4.9 Chloride Level 111 H 108 Carbon Dioxide Level 23 29 Anion Gap 16 17 H Blood Urea Nitrogen 41 H 29 #H Creatinine 6.62 #H 4.77 #H Glucose Level 106 91 Calcium Level 9.1 8.9 Phosphorus Level 5.0 H Magnesium Level 1.7 Medications Medications Current Medications Ondansetron HCl (Zofran Inj) 4 mg Q6H PRN IV NAUSEA AND/OR VOMITING; Start at 17:30 Acetaminophen (Tylenol Tab) 650 mg Q6H PRN PO PAIN LEVEL 1-3 OR FEVER; Start at 17:30 Acetaminophen/ Hydrocodone Bitart ([place] (5/325)) 1 tab Q6H PRN PO MODERATE PAIN LEVEL 4-6 Last administered on 05/29/17 00:00; Admin Dose 1 TAB; Start at 17:30 Hydromorphone HCl (Dilaudid) 0.5 mg Q3 PRN IV SEVERE PAIN LEVEL 7-10 Last administered on 05/29/17 16:06; Admin Dose 0.5 MG; Start 05/28/17 at 17:30 Docusate Sodium (Colace) 100 mg Q12H PRN PO CONSTIPATION; Start 05/28/17 at 17: 30 Zolpidem Tartrate (Ambien) 5 mg QHS PRN PO SLEEP; Start 05/28/17 at 17:30 Lamotrigine (Lamictal) 150 mg BID PO Last administered on 05/31/17 09:38; Admin Dose 150 MG; Start 05/28/17 at 21:00 Hydralazine HCl (Apresoline) 10 mg Q4 PRN IV SBP>160 Last administered on 00:07; Admin Dose 10 MG; Start 05/29/17 at 01:00 Amlodipine Besylate (Norvasc) 10 mg DAILY PO Last administered on 05/31/17 09: 38; Admin Dose 10 MG; Start 05/29/17 at 09:00 Allopurinol (Zyloprim) 100 mg DAILY PO Last administered on 05/31/17 09:38; Admin Dose 100 MG; Start 05/29/17 at 09:00 Metoclopramide HCl (Reglan) 10 mg Q6 IV Last administered on 05/30/17 17:52; Admin Dose 10 MG; Start 05/30/17 at 00:00 Pantoprazole (Protonix Iv) 40 mg BID@ IV Last administered on 05/31/17 05 :27; Admin Dose 40 MG; Start 05/30/17 at 06:00 Lorazepam (Ativan) 2 mg Q1H PRN IV SEIZURES; Start 05/29/17 at 21:00 Clonazepam 1 mg 1 mg Q8H PRN PO ANXIETY; Start 05/29/17 at 22:00 Magnesium Sulfate (Magnesium Sulfate 4 Gm/100 ml) 100 ml @ 25 mls/hr ONCE ONCE IVPB ; Start 05/31/17 at 14:00; Stop 05/31/17 at 17:59 JESUS VALERIO May 31, 2017 15:05
--- NOTE | 2017-05-31 15:11 | PN ---
Date/Time of Note Date/Time of Note DATE: 05/31/17 TIME: 15:03 Assessment/Plan VTE Prophylaxis VTE Prophylaxis Intervention: ambulation Lines/Catheters IV Catheter Type (from [facility]): Saline Lock Assessment/Plan Assessment/Plan I had 30 min discussion with patient and then later with and friend. In brief, I told them that this is a moderatly differentiated adenocarcinoma of the stomach, intestinal type. Final path pending including a HER-2 assay. I also think he will need a PET scan to stage the cancer. CT is suggestive of lymph node involvement. There was also an area in the liver but that is of unclear etiology. I also discussed with them that I expect he will need a Portacath since IV drugs are likely to be needed. Surgery is also likely. Stents were placed in the ureters yesterday and the Cr is coming down. This will need to be followed but it seems likely that renal function will improve. This will be important in choosing the chemotherapy agents. Further discussions will be held tomorrow. I will inform Dr. Cruz of the pathology report. Subjective 24 Hr Interval Summary Free Text/Dictation Pt is walking. Full exam not done. Exam/Review of Systems Vital Signs Vitals Vital Signs Date Time Temp Pulse Resp B/P Pulse Ox O2 Delivery O2 Flow Rate FiO2 05/31/17 12:43 100 05/31/17 12:21 98.0 18 143/83 99 05/30/17 09:38 Room Air 05/30/17 08:40 8.0 Intake and Output 05/30/17 05/30/17 05/31/17 15:00 23:00 07:00 Intake Total 200 ml 1320 ml 250 ml Output Total 350 ml 450 ml 450 ml Balance -150 ml 870 ml -200 ml Results Result Diagram: 05/30/17 0644 05/31/17 0724 Results 24 hrs Laboratory Tests Test 05/30/17 16:45 05/31/17 07:24 Sodium Level 145 H 149 H Potassium Level 5.4 H 4.9 Chloride Level 111 H 108 Carbon Dioxide Level 23 29 Anion Gap 16 17 H Blood Urea Nitrogen 41 H 29 #H Creatinine 6.62 #H 4.77 #H Glucose Level 106 91 Calcium Level 9.1 8.9 Phosphorus Level 5.0 H Magnesium Level 1.7 Medications Medications Current Medications Ondansetron HCl (Zofran Inj) 4 mg Q6H PRN IV NAUSEA AND/OR VOMITING; Start at 17:30 Acetaminophen (Tylenol Tab) 650 mg Q6H PRN PO PAIN LEVEL 1-3 OR FEVER; Start at 17:30 Acetaminophen/ Hydrocodone Bitart ([place] (5/325)) 1 tab Q6H PRN PO MODERATE PAIN LEVEL 4-6 Last administered on 05/29/17 00:00; Admin Dose 1 TAB; Start at 17:30 Hydromorphone HCl (Dilaudid) 0.5 mg Q3 PRN IV SEVERE PAIN LEVEL 7-10 Last administered on 05/29/17 16:06; Admin Dose 0.5 MG; Start 05/28/17 at 17:30 Docusate Sodium (Colace) 100 mg Q12H PRN PO CONSTIPATION; Start 05/28/17 at 17: 30 Zolpidem Tartrate (Ambien) 5 mg QHS PRN PO SLEEP; Start 05/28/17 at 17:30 Lamotrigine (Lamictal) 150 mg BID PO Last administered on 05/31/17 09:38; Admin Dose 150 MG; Start 05/28/17 at 21:00 Hydralazine HCl (Apresoline) 10 mg Q4 PRN IV SBP>160 Last administered on 00:07; Admin Dose 10 MG; Start 05/29/17 at 01:00 Amlodipine Besylate (Norvasc) 10 mg DAILY PO Last administered on 05/31/17 09: 38; Admin Dose 10 MG; Start 05/29/17 at 09:00 Allopurinol (Zyloprim) 100 mg DAILY PO Last administered on 05/31/17 09:38; Admin Dose 100 MG; Start 05/29/17 at 09:00 Metoclopramide HCl (Reglan) 10 mg Q6 IV Last administered on 05/30/17 17:52; Admin Dose 10 MG; Start 05/30/17 at 00:00 Pantoprazole (Protonix Iv) 40 mg BID@ IV Last administered on 05/31/17 05 :27; Admin Dose 40 MG; Start 05/30/17 at 06:00 Lorazepam (Ativan) 2 mg Q1H PRN IV SEIZURES; Start 05/29/17 at 21:00 Clonazepam 1 mg 1 mg Q8H PRN PO ANXIETY; Start 05/29/17 at 22:00 Magnesium Sulfate (Magnesium Sulfate 4 Gm/100 ml) 100 ml @ 25 mls/hr ONCE ONCE IVPB ; Start 05/31/17 at 14:00; Stop 05/31/17 at 17:59 KAEL GOLDEN MD May 31, 2017 15:11
--- NOTE | 2017-05-31 15:47 | PDOCDIS ---
Discharge Instructions CONDITION Patient Condition: Good HOME CARE INSTRUCTIONS: Diet Instructions: Regular ACTIVITY: Activity Restrictions: No Restrictions FOLLOW UP/APPOINTMENTS Follow-up Plan F/U WITH DR DUTTA OF ONCOLOGY NEXT WEEK AND WITH DR DUDLEY OF UROLOGY FOR STENT REPLACEMENT JESUS VALERIO May 31, 2017 15:47
[2017-05-31] MEDS ORDERED: HYDR-3498 PO (15:54)
[2017-05-31] MEDS ORDERED: ONDA4TAB8 PO (15:54)
[2017-05-31] MEDS ORDERED: DOCU-144 PO (15:54)
[2017-05-31] MEDS ORDERED: AMLO-147 PO (15:54)
[2017-05-31] MEDS ORDERED: MAGNESIUM OXIDE 400 MG TAB PO ONE (16:00)
--- NOTE | 2017-05-31 16:09 | DS ---
Date/Time of Note Date/Time of Note DATE: 05/31/17 TIME: 16:00 Discharge Summary Admission/Discharge Info Admit Date/Time May 28, 2017 at 17:01 Discharge Date/Time May 31, 2017 Discharge Diagnosis 1. Abdominal pain secondary to metastatic gastric adenocarcinoma bilateral hydronephrosis and carcinomatosis GI and oncology consultation as well as urology consultations appreciated Status post EGD with biopsy, path shows adenocarcinoma, patient has poor prognosis but may benefit from chemo Status post bilateral ureteral stent for bilateral hydronephrosis, patient now having high urine output CT brain and chest show no metastasis, MRI brain shows no brain metastases Pain control Patient to follow-up with oncology-Dr. Cruz for outpatient PET and Port-A- Cath placement for initiation of chemotherapy 2. Acute kidney injury secondary to obstructive uropathy with bilateral hydronephrosis from retroperitoneal adenopathy and carcinomatosis status post bilateral ureteral stents-improving Urology and nephrology consultations appreciated Patient to follow-up with urology for stent replacement in several months 3. History of seizures-patient had a seizure 2 nights ago currently stable Continue home Lamictal MRI brain shows some FLAIR signal hyperintensity likely from recent seizure 4. Normocytic anemia likely secondary chronic disease Monitor Patient Condition: Good Hospital Course Patient is a 37-year-old male with history of seizures diagnosed approximately 1 year ago presents with 1 month of worsening left flank pain and abdominal pain. In the ER CT abdomen showed a mass in the stomach suspicious for gastric cancer as well as moderate hydronephrosis of both kidneys as well as carcinomatosis and possible liver mass. Patient had an EGD with biopsy of the gastric mass that showed adenocarcinoma. Patient had obstructive uropathy secondary to carcinomatosis and was seen by urology, patient had bilateral ureteral stents placed with improvement of renal function and high urine output. Patient was seen by nephrology as well for the obstructive kidney injury. Patient was told about his diagnosis of gastric adenocarcinoma and his poor prognosis, patient was shocked with diagnosis and wanted to be discharged home to see his son. Patient was told that he needs a follow-up with Dr. Cruz of oncology for PET scan and initiation of chemotherapy and he stated that he understood. It was felt that patient was stable for discharge as his urine output was significant and his creatinine was trending down, oncology felt that there is no need for further inpatient stay and is my feeling is that the the patient can have his renal function monitored as an outpatient, that he should return home to his family considering the unfortunate news he received on the day of discharge. On the day of discharge patient's vitals, labs and physical exam stable. Home Meds Active Scripts Docusate Sodium* (Colace*) 100 Mg Capsule, 100 MG PO BID, #60 CAP Prov:JESUS VALERIO 05/31/17 Ondansetron Hcl* (Zofran*) 4 Mg Tablet, 4 MG PO Q6H Y for NAUSEA AND OR VOMITING , #30 TAB Prov:JESUS VALERIO 05/31/17 Hydrocodone Bit-Acetaminophen (Hydrocodone Bit-APAP) 5-325MG Tablet, 1 TAB PO Q4 Y for MODERATE PAIN LEVEL 4-6, #30 TAB Prov:JESUS VALERIO 05/31/17 Amlodipine Besylate* (Amlodipine Besylate*) 10 Mg Tablet, 10 MG PO DAILY, #60 TAB Prov:JESUS VALERIO 05/31/17 Phenytoin* Sodium Extended (Dilantin*) 100 Mg Capsule, 100 MG PO TID for 30 Days , CAP Prov:RENU LOPEZ MD 10/28/15 Reported Medications Ibuprofen* (Ibuprofen*) 600 Mg Tablet, 600 MG PO TID Y for PAIN 10/28/15 Levetiracetam* (Levetiracetam*) 500 Mg Tablet, 500 MG PO BID 10/28/15 Follow-up Plan Follow with Dr. Cruz of oncology next week, follow-up with PCP follow-up with Dr. Lizarraga of urology for stent replacement Primary Care Provider Lloyd Valentine Time spent on discharge: > 30 minutes JESUS VALERIO May 31, 2017 16:08
--- NOTE | 2017-06-01 20:38 | CONS ---
Date/Time of Note Date/Time of Note DATE: 06/01/17 TIME: 20:32 Assessment/Plan Assessment/Plan Cont'd Hospitalization Reason: Pt has good urine output & was advised to drink a lot of water. Consultation Date/Type/Reason Admit Date/Time May 28, 2017 at 17:01 Initial Consult Date 05/29/17 Type of Consultation: Renal Reason for Consultation This note is from 05/31/17 Pt was seen at 1400 Referring Provider: JESUS VALERIO Exam/Review of Systems Vital Signs Vitals Vital Signs Date Time Temp Pulse Resp B/P Pulse Ox O2 Delivery O2 Flow Rate FiO2 05/31/17 15:50 98.0 87 18 137/78 97 05/30/17 09:38 Room Air 05/30/17 08:40 8.0 Exam Constitutional: alert, oriented, well developed Psych: nl mood/affect, no complaints Head: atraumatic, normocephalic Eyes: EOMI, PERRL, nl conjunctiva, nl lids, nl sclera ENMT: nl external ears & nose, nl lips & teeth, nl nasal mucosa & septum Neck: non-tender, supple Respiratory: clear to auscultation, normal air movement Cardiovascular: nl pulses, regular rate and rhythm Gastrointestinal: nl liver, spleen, non-tender, soft Musculoskeletal: nl extremities to inspection, nl gait and stance Extremities: normal pulses Neurological: [employer] II-XII intact, nl mental status, nl speech, nl strength Skin: nl turgor, No rash or lesions Lymph: nl lymph nodes Results Renal fn has begun to turn around Result Diagram: 05/30/17 0644 05/31/17 0724 REBECCA PRASAD MD Jun 01, 2017 20:38
== END 2017-05-31 16:20 | disposition home or self-care (01) | DRG 375 ==
LOC: FTE 12:01 → MS2 17:01 → TEL 05-29 20:20
PROVIDERS: ADMIT Internal Medicine; ATTEND Internal Medicine
PROC: 0DB68ZX Excision of Stomach, Via Natural or Artificial Opening Endoscopic, Diagnostic (ICD-10-PCS; principal; 2017-05-29 17:30)
PROC: 0T788DZ Dilation of Bilateral Ureters with Intraluminal Device, Via Natural or Artificial Opening Endoscopic (ICD-10-PCS; 2017-05-30)
PROC: BT14ZZZ Fluoroscopy of Kidneys, Ureters and Bladder (ICD-10-PCS; 2017-05-30)
DX: C16.3 Malignant neoplasm of pyloric antrum (principal); N13.30 Unspecified hydronephrosis; N17.9 Acute kidney failure, unspecified; C78.6 Secondary malignant neoplasm of retroperitoneum and peritoneum; E87.5 Hyperkalemia; R18.8 Other ascites; R59.0 Localized enlarged lymph nodes; G40.909 Epilepsy, unspecified, not intractable, without status epilepticus; K29.70 Gastritis, unspecified, without bleeding; K59.00 Constipation, unspecified; K42.9 Umbilical hernia without obstruction or gangrene; D63.8 Anemia in other chronic diseases classified elsewhere
CPT/HCPCS: 36415; 70450; 70551; 71250; 74176; 74420; 76775; 80048; 80053; 80061; 81003; 82378; 82784; 82962; 83036; 83615; 83690; 83735; 84100; 84155; 84165; 84560; 85025; 85610; 85730; 86301; 86320; 88305; 88312; 95819; 96374; 96375; 96376; C2617; C9113; J0360; J0690; J1170; J1885; J1940; J1953; J2060; J2250; J2405; J2765; J3010; J7030; J7042; Q9967

== ENCOUNTER 2017-10-10 09:34 | Emergency (ER) | payer BC ==
[~2017-10-10] VITALS: Ht 157.5 cm; Wt 66.7 kg
[~2017-10-10 09:34] MED LIST changes: +AMLO-147 PO; +DOCU-144 PO; +HYDR-3498 PO; +ONDA4TAB8 PO
[2017-10-10 09:37] VITALS: Ht 157.5 cm; Wt 66.7 kg
[2017-10-10] MEDS ORDERED: ONDANSETRON (ODT) 4 MG TAB ODT STA (09:58)
[2017-10-10] MEDS ORDERED: HYDROCODONE/APAP (10/325) TAB PO ONE (10:00)
[2017-10-10] MEDS ORDERED: HYDR-902 PO (10:12)
[2017-10-10 11:03] VITALS: BP 128/82; PULSE 72; RESP 16; TEMP 98.3
--- NOTE | 2017-10-10 13:16 | ERD ---
ER Documentation Chief Complaint Chief Complaint NEPHOSTOMY TUBE PULLED, LEAKAGE NOW FROM SITE HPI Patient is a 37-year-old male with stomach cancer who presents with right-sided flank pain. The patient said that he was walking and caught the right side nephrostomy tube on a door and he popped a stitch. It happened 1 hour ago. He had some bleeding from the site which has stopped. He said "it hurts like hell ". He has had these nephrostomy tubes bilaterally for the past 3 months. He does receive chemotherapy and got chemo 2 weeks ago. He does not know the name of his primary doctor or the name of his urologist. ROS All systems reviewed and are negative except as per history of present illness. Medications Home Meds Active Scripts Hydrocodone/Acetaminophen ([place] 10-325 Tablet) 1 Each Tablet, 1 TAB PO Q6H Y for PAIN, #12 TAB Prov:JAREN ALVARES MD 10/10/17 Docusate Sodium* (Colace*) 100 Mg Capsule, 100 MG PO BID, #60 CAP Prov:JESUS VALERIO 05/31/17 Ondansetron Hcl* (Zofran*) 4 Mg Tablet, 4 MG PO Q6H Y for NAUSEA AND OR VOMITING , #30 TAB Prov:JESUS VALERIO 05/31/17 Hydrocodone Bit-Acetaminophen (Hydrocodone Bit-APAP) 5-325MG Tablet, 1 TAB PO Q4 Y for MODERATE PAIN LEVEL 4-6, #30 TAB Prov:JESUS VALERIO 05/31/17 Amlodipine Besylate* (Amlodipine Besylate*) 10 Mg Tablet, 10 MG PO DAILY, #60 TAB Prov:JESUS VALERIO 05/31/17 Phenytoin* Sodium Extended (Dilantin*) 100 Mg Capsule, 100 MG PO TID for 30 Days , CAP Prov:RENU LOPEZ MD 10/28/15 Reported Medications Ibuprofen* (Ibuprofen*) 600 Mg Tablet, 600 MG PO TID Y for PAIN 10/28/15 Levetiracetam* (Levetiracetam*) 500 Mg Tablet, 500 MG PO BID 10/28/15 Allergies Allergies: Coded Allergies: No Known Allergies (Verified Allergy, Mild, 07/27/10) PMhx/Soc History of Surgery: No Anesthesia Reaction: No Hx Neurological Disorder: No Hx Respiratory Disorders: No Hx Cardiac Disorders: No Hx Psychiatric Problems: No Hx Miscellaneous Medical Probl: Yes (Stomach CA-chemo, hydronephrostomy. ) Hx Alcohol Use: Yes (Daily ) Hx Substance Use: No Hx Tobacco Use: No Smoking Status: Never smoker FmHx Family History: diabetes Physical Exam Vitals Vital Signs Date Time Temp Pulse Resp B/P Pulse Ox O2 Delivery O2 Flow Rate FiO2 10/10/17 11:03 98.3 72 16 128/82 99 Room Air 10/10/17 09:37 98.1 79 18 138/79 99 Physical Exam Const: Moderate distress secondary to pain Head: Atraumatic Eyes: Normal Conjunctiva ENT: Normal External Ears, Nose and Mouth. Neck: Full range of motion..~ No meningismus. Resp: Clear to auscultation bilaterally Cardio: Regular rate and rhythm, no murmurs Abd: Soft, non tender, non distended. Normal bowel sounds Skin: Right-sided flank pain, no bleeding around the nephrostomy tube site, there is not appear to be any withdrawal of the nephrostomy tube but the stitch did pop out. Back: No midline or flank tenderness Ext: No cyanosis, or edema Neur: Awake and alert Psych: Normal Mood and Affect Results 24 hrs Current Medications Medications (Trade) Dose Ordered Sig/Suzanne Route PRN Reason Start Time Stop Time Status Last Admin Dose Admin Acetaminophen/ Hydrocodone Bitart ([place] (10/325)) 1 tab ONCE ONCE PO 10/10/17 10:00 10/10/17 10:01 DC 10/10/17 10:00 Ondansetron HCl (Zofran Odt) 4 mg ONCE STAT ODT 10/10/17 09:58 10/10/17 09:59 DC 10/10/17 09:58 Procedures/MDM Patient was given [place] and Zofran for symptomatically relief of his pain. There does not appear to be any withdrawal of the nephrostomy tube so the area was taped down tightly and the patient will need to follow-up with his urologist for further care. The patient can return for any worsening symptoms. Departure Diagnosis: Primary Impression: Nephrostomy tube bleed Condition: Fair Patient Instructions: Percutaneous Nephrostomy Additional Instructions: SPECIALIST: YOU HAVE A MEDICAL CONDITION WHICH REQUIRES YOU TO SEE A SPECIALIST WITHIN THE NEXT 1-2 DAYS. PLEASE FOLLOW UP WITH YOUR PRIMARY PHYSICIAN FOR REFFERAL.IF YOU DO NOT HAVE A PRIMARY CARE PHYSICIAN AND/OR YOU CAN NOT AFFORD TO SEE A PHYSICIAN THE FOLLOWING RESOURCES HAVE BEEN SUPPLIED TO YOU. IT IS YOUR RESPONSIBILITY TO BE SEEN BY THE SPECIALIST JAREN ALVARES MD Oct 10, 2017 13:16
== END 2017-10-10 11:41 | disposition home or self-care (01) ==
LOC: E/R 09:34
DX: T83.83XA Hemorrhage due to genitourinary prosthetic devices, implants and grafts, initial encounter (principal); C16.9 Malignant neoplasm of stomach, unspecified; Y73.8 Miscellaneous gastroenterology and urology devices associated with adverse incidents, not elsewhere classified
CPT/HCPCS: 99283

== ENCOUNTER 2017-11-28 13:40 | Outpatient (CLI) | END 2017-11-28 15:53 | disposition home or self-care (01) ==

== ENCOUNTER 2018-08-24 20:50 | Inpatient (IN) | END 2018-09-01 01:02 | disposition EXP | DRG 70 ==